=== PATIENT | female | born 1950 | race Hispanic/Latino ===

== ENCOUNTER 2019-02-19 10:47 | Inpatient (IN) | payer OTHER ==
[2019-02-19 11:23] LABS: Absolute Lymphocytes (CBC) 1.3 K/uL (0.7-4.9); Basophils % 0.7 % (0-1.3); Eosinophils % 1.6 % (0-4.4); Hematocrit 44.6 % (36.0-45.0); Lymphocytes % 12.6 % (15.3-44.8); MPV 8.6 fL (7.6-11.3); Monocytes % 5.8 % (3.3-12.3); RBC Red Blood Cell Count 4.79 M/uL (3.86-4.86)
[2019-02-19] MEDS ORDERED: SOTALOL HCL 80 MG TAB ONE (11:32)
[2019-02-19] MEDS ORDERED: NA CHLORIDE 0.9% 500 ML ONE (11:32)
[2019-02-19 11:47] LABS: BUN Blood Urea Nitrogen 10 mg/dL (7-18); Bicarbonate 27 mmol/L (21-32); Glucose Level 113 mg/dL (74-106); NT PRO-BNP 901 pg/mL (<125); Potassium 3.6 mmol/L (3.5-5.1); Sodium Level 143 mmol/L (136-145); Troponin (Emerg Dept Use Only) < 0.02 ng/mL (0.0-0.045)
--- NOTE | 2019-02-19 12:33 | RAD REPORT ---
EXAM DESCRIPTION: CT - Chest For Pe Angio - 02/19/2019 12:10 pm CLINICAL HISTORY: Chest pain COMPARISON: None. TECHNIQUE: Dynamically enhanced axial 3 mm thick images of the chest were obtained during administra tion of <100> mL Isovue 370 IV contrast. Coronal and oblique reconstruction images were generated and reviewed. Exam utilizes a protocol for optimal evaluation of pulmonary arterial tree. Maximum intensity projections 3D imaging was utilized All CT scans are performed using dose optimization technique as appropriate and may include automated exposure control or mA/KV adjustment according to patient size. FINDINGS: A pulmonary embolus is not seen. Central pulmonary arteries are enlarged A thoracic aortic aneurysm is not noted. A pleural effusion is not seen. A pericardial effusion is not seen. Mild right atelectasis. Mild bilateral ground-glass opacities within the lungs Portion of the liver has been resected 19 millimeter nodule left lobe thyroid IMPRESSION: Negative for a pulmonary embolism. Enlargement of the central pulmonary arteries may indicate pulmonary arterial hypertension Mild ground-glass opacities within the lungs indicative of an alveolitis 19 millimeter nodule left lobe of thyroid gland. Nonemergent ultrasound recommended
--- NOTE | 2019-02-19 12:34 | RAD REPORT ---
EXAM DESCRIPTION: Subha Single View02/19/2019 11:27 am CLINICAL HISTORY: Chest pain COMPARISON: 2012 FINDINGS: Mild bilateral pulmonary opacities may indicate pulmonary edema The heart is mildly enlarged. Central pulmonary arteries are enlarged which may indicate pulmonary ar terial hypertension
--- NOTE | 2019-02-19 13:14 | ER ---
Nurse's Notes [facility] Name: Mecca Banuelos Age: 68 yrs Sex: Female : 1950 Arrival Date: 02/19/2019 Time: 10:49 Bed 8 Private MD: Diagnosis: Unspecified atrial fibrillation and atrial flutter;Hypotension, unspecified;Chest pain, unspecified Presentation: 02/19 11:00 Acuity: MARICHUY 2 iw 11:00 Presenting complaint: Patient states: left sided chest pain described as pressure and iw SOB, started when she woke up this morning, hx of afib, recent surgery for heart murmur at [facility] at end of January, stopped taking her sotalol on January 30 prior to surgery. Transition of care: patient was not received from another setting of care. Onset of symptoms was February 19, 2019. Risk Assessment: Do you want to hurt yourself or someone else? Patient reports no desire to harm self or others. Initial Sepsis Screen: Does the patient meet any 2 criteria? HR > 90 bpm. Does the patient have a suspected source of infection? No. Patient's initial sepsis screen is negative. Care prior to arrival: None. 11:00 Method Of Arrival: Wheelchair iw Historical: - Allergies: 11:23 No Known Allergies; iw - Home Meds: 11:23 Tylenol #3 Oral every 4 hours [Active]; gabapentin 100 mg oral cap 3 times per day iw [Active]; clopidogrel 75 mg oral tab 1 tab once daily [Active]; tramadol 50 mg Oral tab 1 tab every 6 hours [Active]; atorvastatin 40 mg oral tab 1 tab once daily [Active]; Docusate Sodium Oral [Active]; aspirin 81 mg Oral TbEC 1 tab once daily [Active]; ondansetron HCl 4 mg Oral tab [Active]; 11:33 lisinopril-hydrochlorothiazide 20-12.5 mg oral tab 1 tab once daily [Active]; iw 11:34 sotalol 80 mg Oral tab [Active]; iw - PMHx: 11:23 Atrial Fib; iw - PSHx: 11:20 Appendectomy; iw 11:33 surgery to repair heart murmur; iw - Immunization history:: Adult Immunizations up to date. - Family history:: not pertinent. - Ebola Screening: : Patient negative for fever greater than or equal to 101.5 degrees Fahrenheit, and additional compatible Ebola Virus Disease symptoms Patient denies exposure to infectious person Patient denies travel to an Ebola-affected area in the 21 days before illness onset No symptoms or risks identified at this time. - Social history:: Smoking status: Patient/guardian denies using tobacco. - Hospitalizations: : Patient was recently seen at. Screenin:26 Abuse screen: Denies threats or abuse. Denies injuries from another. Nutritional iw screening: No deficits noted. Tuberculosis screening: No symptoms or risk factors identified. Fall Risk IV access (20 points). Assessment: 11:15 Reassessment: Pt reports she [facility] S[facility] on January 30, [facility] and I am supposed to have another surgery to get some tumors removed". Pt's daughter states "she thought the Sotalol was the blood thinner so she stopped it instead of the Plavix". was notified. . 11:20 General: Appears in no apparent distress. comfortable, Behavior is calm, cooperative, ss Denies fever, feeling ill, fatigue, chills. Pain: Complains of pain in chest Pain does not radiate. Pain currently is 0 out of 10 on a pain scale. Pain began Pt reports she woke up this morning with mild chest discomfort and felt short of breath. Recently stopped taking Sotolol by accident, but had been meaning to stop taking Plavix to prepare for upcoming surgery. Neuro: Level of Consciousness is awake, alert, obeys commands, Oriented to person, place, time, situation, Speech is normal, Facial symmetry appears normal, Pupils are PERRLA, Denies weakness blurred vision dizziness, headache. Cardiovascular: Pulses are palpable in right radial artery, right posterior tibial artery, left radial artery and left posterior tibial artery. Respiratory: Reports SOB on exertion Airway is patent Respiratory effort is even, unlabored, Respiratory pattern is regular, symmetrical. Respiratory: Denies cough. GI: Patient currently denies diarrhea, nausea, vomiting. EENT: Nares are clear Oral mucosa is moist. Throat is clear. Derm: Skin is intact, is healthy with good turgor, Skin is dry, Skin is pink, warm \\T\\ dry. normal. 11:27 Reassessment: Patient and/or family updated on plan of care and expected duration. Pain ss level reassessed. Patient is alert, oriented x 3, equal unlabored respirations, skin warm/dry/pink. Denies pain. Call light within reach. Family at bedside. Warm blanket given for comfort. 12:03 Reassessment: Assisted patient to bedside commode to have BP. Pt denies pain. is now ss back in bed. Pt to CT at this time VIA stretcher. 13:11 Reassessment: Patient appears in no apparent distress at this time. Patient and/or ss family updated on plan of care and expected duration. Pain level reassessed. Patient denies pain at this time. 14:25 Reassessment: Patients cardiac rhythm changed to Sinus Rhythm. Repeat EKG completed and ss given to Dr. Moe. Pain: Denies pain. Respiratory: Breath sounds are clear bilaterally. Denies cough, shortness of breath pain with respiration, pain with cough, pain with movement. 14:32 Reassessment: Assisted patient to bedside commode. Void x1. Pt denies dizziness, pain ss and/or shortness of breath. 14:38 Reassessment: Attempted to call report. Nurse unavailable at this time. Will call back ss in 5 minutes. Vital Signs: 11:15 BP 93 / 47; Pulse 133; Resp 20 S; Pulse Ox 98% on R/A; iw 11:25 Temp 98.2(TE); ss 11:35 BP 88 / 56; Pulse 135; Pulse Ox 98% on R/A; Pain 0/10; ss 11:45 BP 96 / 75; Pulse 129; Resp 19; Pulse Ox 98% on R/A; Pain 0/10; ss 12:19 BP 78 / 54; Pulse 115; ss 12:27 BP 92 / 51; Pulse 97; Resp 21; Pulse Ox 95% on R/A; Pain 0/10; ss 13:08 BP 104 / 82; Pulse 105; ss 13:53 BP 97 / 64; Pulse 98; Pain 0/10; ss 14:12 BP 110 / 64; Pulse 68; Resp 15; Pulse Ox 98% on R/A; Pain 0/10; ss 14:20 BP 106 / 56; Pulse 71; Resp 16; Pulse Ox 98% on R/A; Pain 0/10; ss Vitals: 14:18 Cardiac Rhythm Assessment Regular Sinus rhythm. ED Course: 10:49 Patient arrived in ED. as 10:53 Saúl Moe MD is Attending Physician. rn 11:10 Initial lab(s) drawn, by me, sent to lab. Inserted saline lock: 20 gauge in right iw antecubital area, using aseptic technique. Blood collected. 11:13 Triage completed. iw 11:14 Radiology exam delayed due to lab results not completed at this time. (BUN/Creatinine). bq 11:19 Arm band placed on. iw 11:20 Lotus Mariano, EDSON is Primary Nurse. ss 11:27 Patient maintains SpO2 saturation greater than 95% on room air. ss 11:28 XRAY Chest (1 view) In Process Unspecified. EDMS 11:36 Radiology exam delayed due to lab results not completed at this time. (BUN/Creatinine). mw3 12:10 CT completed. Patient tolerated procedure well. Patient moved back from CT. mw3 12:10 CT Chest For PE Angio In Process Unspecified. EDMS 13:13 Wesly Vang MD is Hospitalizing Provider. rn 13:15 Patient has correct armband on for positive identification. Bed in low position. Call ss light in reach. Side rails up X 1. monitor car operator on. Pulse ox on. NIBP on. 14:56 No provider procedures requiring assistance completed. Patient admitted, IV remains in ss place. Administered Medications: 11:18 Drug: Sotalol 80 mg Route: PO; aa5 12:00 Follow up: Response: No adverse reaction sv 14:19 Follow up: Response: No adverse reaction; Cardiac rhythm changed ss 11:18 Drug: NS 0.9% 500 ml Route: IV; Rate: bolus; Site: right antecubital; aa5 12:00 Follow up: IV Status: Completed infusion; IV Intake: 500ml ss 14:19 Not Given (Physician Discretion): Sotalol 80 mg PO once ss Intake: 12:00 IV: 500ml; Total: 500ml. ss Outcome: 13:13 Decision to Hospitalize by Provider. rn 14:56 Admitted to Tele accompanied by tech, family with patient, via wheelchair, room 411, ss with chart, Report called to EDSON Holden 14:56 Condition: good 14:56 Instructed on the need for admit, Demonstrated understanding of instructions. 14:57 Patient left the ED. ss Signatures: Dispatcher [employer] Jamila Roque RN RN Tish Torres Amelia as Williams, Irene, RN RN Saúl Allen MD MD rn Calderon, Christiane, EDSON RN aa5 Lotus Mariano RN RN ss Dimas, Renata 3
--- NOTE | 2019-02-19 13:15 | EDPHYS ---
Physician Documentation [facility] Name: Mecca Banuelos Age: 68 yrs Sex: Female : 1950 Arrival Date: 02/19/2019 Time: 10:49 Bed 8 Private MD: ED Physician Saúl Moe HPI: 02/19 11:05 This 68 yrs old Female presents to ER via Unassigned with complaints of rn Irregular Pulse, Shortness Of Breath. 11:05 The patient has shortness of breath at rest. Onset: The symptoms/episode began/occurred rn this morning. Duration: The symptoms are intermittent. The patient's shortness of breath is aggravated by exertion, talking. Severity of symptoms: At their worst the symptoms were mild in the emergency department the symptoms are unchanged. The patient has experienced similar episodes in the past. Reports palpitations, generalized weakness, sob, that began this morning, reports had intravascular procedure a few weeks ago at [facility] to get rid of murmur, had been doing fine. No fever/cough/vomiting/diarrhea/abd pain. Denies current pain. Reports felt chest "discomfort", no hemoptysis. Has known "irregular heart beat", takes sotalol, and aspirin. . Historical: - Allergies: 11:23 No Known Allergies; iw - Home Meds: 11:23 Tylenol #3 Oral every 4 hours [Active]; gabapentin 100 mg oral cap 3 times per day iw [Active]; clopidogrel 75 mg oral tab 1 tab once daily [Active]; tramadol 50 mg Oral tab 1 tab every 6 hours [Active]; atorvastatin 40 mg oral tab 1 tab once daily [Active]; Docusate Sodium Oral [Active]; aspirin 81 mg Oral TbEC 1 tab once daily [Active]; ondansetron HCl 4 mg Oral tab [Active]; 11:33 lisinopril-hydrochlorothiazide 20-12.5 mg oral tab 1 tab once daily [Active]; iw 11:34 sotalol 80 mg Oral tab [Active]; iw - PMHx: 11:23 Atrial Fib; iw - PSHx: 11:20 Appendectomy; iw 11:33 surgery to repair heart murmur; iw - Immunization history:: Adult Immunizations up to date. - Family history:: not pertinent. - Ebola Screening: : Patient negative for fever greater than or equal to 101.5 degrees Fahrenheit, and additional compatible Ebola Virus Disease symptoms Patient denies exposure to infectious person Patient denies travel to an Ebola-affected area in the 21 days before illness onset No symptoms or risks identified at this time. - Social history:: Smoking status: Patient/guardian denies using tobacco. - Hospitalizations: : Patient was recently seen at. ROS: 11:05 Constitutional: Negative for fever, chills, and weight loss, Eyes: Negative for injury, rn pain, redness, and discharge, Neck: Negative for injury, pain, and swelling, Cardiovascular: + palpitations and chest discomfort. Respiratory: + sob, negative for cough Abdomen/GI: Negative for abdominal pain, nausea, vomiting, diarrhea, and constipation, MS/Extremity: Negative for injury and deformity, Skin: Negative for injury, rash, and discoloration, Neuro: Negative for headache, numbness, tingling, and seizure. Exam: 11:05 Constitutional: This is a well developed, well nourished patient who is awake, alert, rn and in no acute distress. Head/Face: Normocephalic, atraumatic. Eyes: Pupils equal round and reactive to light, extra-ocular motions intact. Lids and lashes normal. Conjunctiva and sclera are non-icteric and not injected. Cornea within normal limits. Periorbital areas with no swelling, redness, or edema. ENT: MMM Cardiovascular: Regular rhythm, tachycardic, no murmur Respiratory: Lungs have equal breath sounds bilaterally, clear to auscultation Abdomen/GI: soft, non-tender Skin: Warm, dry MS/ Extremity: Pulses equal, no cyanosis. Neurovascular intact. Full, normal range of motion. Equal circumference. Neuro: Awake and alert, GCS 15, oriented to person, place, time, and situation. Cranial nerves II-XII grossly intact. Motor strength 5/5 in all extremities. Sensory grossly intact. Vital Signs: 11:15 BP 93 / 47; Pulse 133; Resp 20 S; Pulse Ox 98% on R/A; iw 11:25 Temp 98.2(TE); ss 11:35 BP 88 / 56; Pulse 135; Pulse Ox 98% on R/A; Pain 0/10; ss 11:45 BP 96 / 75; Pulse 129; Resp 19; Pulse Ox 98% on R/A; Pain 0/10; ss 12:19 BP 78 / 54; Pulse 115; ss 12:27 BP 92 / 51; Pulse 97; Resp 21; Pulse Ox 95% on R/A; Pain 0/10; ss 13:08 BP 104 / 82; Pulse 105; ss 13:53 BP 97 / 64; Pulse 98; Pain 0/10; ss 14:12 BP 110 / 64; Pulse 68; Resp 15; Pulse Ox 98% on R/A; Pain 0/10; ss 14:20 BP 106 / 56; Pulse 71; Resp 16; Pulse Ox 98% on R/A; Pain 0/10; ss MDM: 10:53 Patient medically screened. rn 13:09 Data reviewed: vital signs, nurses notes, lab test result(s), EKG, radiologic studies, rn CT scan, plain films, and as a result, I will admit patient. Counseling: I had a detailed discussion with the patient and/or guardian regarding: the historical points, exam findings, and any diagnostic results supporting the discharge/admit diagnosis, lab results, radiology results, the need for further work-up and treatment in the hospital. Response to treatment: the patient's symptoms have mildly improved after treatment. Admission orders: after a detailed discussion of the patient's condition and case, the admit orders are written by me. ED course: Pt with improvement of HR, still tachycardic but resolved chest pain and sob. CT PE negative, possible alveolitis vs pulmonary edema. Has been off of sotalol for weeks accidentally or due to miscommunication, no PCP in area, and still hypotensive, admitted to Dr. Vang for further care and HR control.. 02/19 11:04 Order name: Basic Metabolic Panel; Complete Time: 11:49 rn 02/19 11:04 Order name: CBC with Diff; Complete Time: 11:49 rn 02/19 11:04 Order name: NT PRO-BNP; Complete Time: 11:49 rn 02/19 11:04 Order name: Troponin (emerg Dept Use Only); Complete Time: 11:49 rn 02/19 11:04 Order name: XRAY Chest (1 view); Complete Time: 12:36 rn 02/19 11:05 Order name: CT Chest For PE Angio; Complete Time: 12:36 rn 02/19 11:04 Order name: EKG; Complete Time: 11:05 rn 02/19 11:04 Order name: Cardiac monitoring; Complete Time: 11: rn 02/19 11:04 Order name: EKG - Nurse/Tech; Complete Time: 11: rn 02/19 11:04 Order name: IV Saline Lock; Complete Time: 11:23 rn 02/19 14:19 Order name: EKG; Complete Time: 14:19 ss 02/19 11:04 Order name: Labs collected and sent; Complete Time: : rn 02/19 11:04 Order name: O2 Per Protocol; Complete Time: : rn 02/19 11:04 Order name: O2 Sat Monitoring; Complete Time: : rn 02/19 14:19 Order name: EKG - Nurse/Tech; Complete Time: 14:19 ss Administered Medications: 11:18 Drug: Sotalol 80 mg Route: PO; aa5 12:00 Follow up: Response: No adverse reaction sv 14:19 Follow up: Response: No adverse reaction; Cardiac rhythm changed ss 11:18 Drug: NS 0.9% 500 ml Route: IV; Rate: bolus; Site: right antecubital; aa5 12:00 Follow up: IV Status: Completed infusion; IV Intake: 500ml ss 14:19 Not Given (Physician Discretion): Sotalol 80 mg PO once ss Disposition: 02/19/19 13:13 Hospitalization ordered by Wesly Vang for Inpatient Admission. Preliminary diagnosis are Unspecified atrial fibrillation and atrial flutter, Hypotension, unspecified, Chest pain, unspecified. - Bed requested for Telemetry/MedSurg (Inpatient). - Status is Inpatient Admission. ss - Condition is Stable. - Problem is new. - Symptoms have improved. UTI on Admission? No Signatures: Dispatcher [employer] EDAleta Phillips RN EDSON Saúl Moe MD MD rn Calderon, Audri RN RN [email or web address] Lotus Mariano RN RN Rod Dupree RN RN ja1 Jamila Wan RN sv Corrections: (The following items were deleted from the chart) 14:38 13:13 Hospitalization Ordered by Wesly Vang MD for Inpatient Admission. Preliminary ja1 diagnosis is Unspecified atrial fibrillation and atrial flutter; Hypotension, unspecified; Chest pain, unspecified. Bed requested for Telemetry/MedSurg (Inpatient). Status is Inpatient Admission. Condition is Stable. Problem is new. Symptoms have improved. UTI on Admission? No. rn 14:57 14:38 02/19/2019 13:13 Hospitalization Ordered by Wesly Vang MD for Inpatient ss Admission. Preliminary diagnosis is Unspecified atrial fibrillation and atrial flutter; Hypotension, unspecified; Chest pain, unspecified. Bed requested for Telemetry/MedSurg (Inpatient). Status is Inpatient Admission. Condition is Stable. Problem is new. Symptoms have improved. UTI on Admission? No. ja1
[2019-02-19] MEDS ORDERED: ACETAMINOPHEN 500 MG TAB PO PRN (15:07)
[2019-02-19] MEDS ORDERED: ONDANSETRON 4 MG/2 ML VIAL IV PRN (15:07)
[2019-02-19 15:43] VITALS: BMI 33.0
[2019-02-19 16:24] LABS: Magnesium 2.4 mg/dL (1.8-2.4); Thyroid Stimulating Hormone 0.895 uIU/mL (0.360-3.740)
[2019-02-19] MEDS: TRAMADOL HCL 50 MG TAB PO SCH ×2 (16:43→23:15)
[2019-02-19] MEDS: NA CHLORIDE 0.9% 1,000 ML IV SCH ×2 (16:44→23:16)
--- NOTE | 2019-02-19 20:08 | RAD REPORT ---
EXAM DESCRIPTION: US - Thyroid Para Parotid Gland - 02/19/2019 7:53 pm CLINICAL HISTORY: ICD R 22.1 thyroid nodule COMPARISON: None FINDINGS: The right lobe of the thyroid measures 4.8 x 2 x 1.6 centimeters. Echotexture is mildly in homogeneous The left lobe of the thyroid measures 4.6 x 1.8 x 2.4 centimeters. 2.7 centimeter mostly cystic nodul e is present containing septations IMPRESSION: 2.7 centimeter cystic nodule containing septations within left lobe of thyroid gland lik lizy is benign. Follow up ultrasound in 1 year recommended for re-evaluation
--- NOTE | 2019-02-19 20:09 | EKG ---
Test Date: 2019-02-19 Test Time: 14:21:23 Plastic Mould Maker: QAMAR MEASUREMENT RESULTS: Intervals: Rate: 72 NM: 150 QRSD: 90 QT: 428 QTc: 468 [place]: P: 50 NM: 150 QRS: -59 T: -12 INTERPRETIVE STATEMENTS: Normal sinus rhythm Left axis deviation Nonspecific T wave abnormality Abnormal ECG Compared to ECG 02/19/2019 10:57:13 Left-axis deviation now present Atrial flutter no longer present Possible ischemia no longer present T-wave abnormality still present Electronically Signed On 02-19-19 20:08:21 CDT by Kalyan Lucas
--- NOTE | 2019-02-19 20:10 | EKG ---
Test Date: 2019-02-19 Test Time: 10:57:13 Mail Messenger: TYLER MEASUREMENT RESULTS: Intervals: Rate: 136 [place]: QRSD: 130 QT: 376 QTc: 565 [place]: P: 145 [place]: QRS: 6 T: 269 INTERPRETIVE STATEMENTS: Atrial flutter with 2:1 AV conduction Nonspecific intraventricular block T wave abnormality, consider inferior ischemia Abnormal ECG Compared to ECG 08/24/2013 21:54:07 T-wave abnormality now present Possible ischemia now present Sinus rhythm no longer present Left-axis deviation no longer present Myocardial infarct finding no longer present Electronically Signed On 02-19-19 20:08:41 CDT by Kalyan Lucas
[2019-02-19] MEDS: ATORVASTATIN 40 MG TAB PO SCH (20:54)
[2019-02-19] MEDS: GABAPENTIN 100 MG CAP PO SCH (20:54)
[2019-02-19] MEDS: SOTALOL HCL 80 MG TAB PO SCH (20:54)
--- NOTE | 2019-02-20 01:10 | HP ---
Date of Admission: 02/19/2019 Primary Care Physician: Out of town. Code Status: Full. Chief Complaint: Generalized weakness and dizziness. History Of Present Illness: The patient is a 68-year-old female with past medical history of hyperte nsion, atrial fibrillation on sotalol and Plavix and history of apparent carcinoid tumors with recent resection at [facility], who was supposed to hold her Plavix; however, ended up holding her so talol instead since the surgery on 01/30/2019. The patient comes in with dizziness, weakness, and wa s brought into the ER for further evaluation. Her symptoms are constant, moderate, progressively wor sening. Upon arrival, she was found to be in the 140s with atrial fibrillation with RVR. Her blood pressure was as low as 70s over 50s, now improved to the 90s over 60s. The patient did receive a dos e of sotalol, which brought down her heart rate to the 110. The patient did not have any elevation o f her troponin. The patient was then referred for admission. When seen in the ER, she was awake, al ert, oriented x3, in some mild distress. 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 Allergies: NO KNOWN DRUG ALLERGIES. Medications: List reviewed. Social History: The patient denies any tobacco use, alcohol use, or illicit drug use. The patient r es[facility] in [facility], currently in [place] for treatment at [facility]. Family History: Both her brothers have diabetes, sister has heart disease and grandfather also suffe red from [place]. Review of Systems: A 10-point systems reviewed, negative except as per HPI. Physical Examination: Vital Signs: Blood pressure 93/47, pulse 133, respirations 20, O2 98% on room air. General: Awake, alert, oriented x3. Some mild distress. Elderly female. CV: S1, S2. Irregularly irregular. Peripheral pulses present. Respiratory: Moving air well bilaterally. No wheezing or stridor. No use of accessory muscles. Gastrointestinal: Abdomen is soft, nontender, nondistended. Positive bowel sounds. No guarding or rigidity. Extremities: No clubbing, cyanosis or edema. Neuro: Cranial nerves 2-12 intact. Grossly no focal neurological deficit. Speech is normal. Skin: No rashes. Normal skin turgor. Psych: Mood is okay. Affect is full. Insight and judgment are good. Laboratory Data: Sodium 143, potassium 3.6, chloride 110, CO2 27, BUN 10, creatinine 0.73, glucose 1 13, calcium 8.5, troponin less than 0.02, BNP 901. WBC 10.6, H and H 14.5 and 44.6, platelets 257, n eutrophils 79%. CT angio of the chest shows negative for PE, enlargement of the central pulmonary ar teries may indicate pulmonary arterial hypertension, mild ground glass opacities within the lungs ind icative of an alveolitis, 19 mm nodule in the left lobe of the thyroid gland. Nonemergent ultrasound recommended. Chest x-ray personally reviewed shows mild bilateral pulmonary opacities may indicate pulmonary edema, heart mildly enlarged, central pulmonary arteries are enlarged, may indicate pulmona ry arterial hypertension. Assessment And Plan: A 68-year-old female with: 1.Atrial fibrillation with rapid ventricular response, improved with dose of sotalol, hemodynamicall y unstable with blood pressure in the 70s over 50s. The patient complaining of some generalized weak ness, dizziness. No chest pain. Troponin is negative. We will check magnesium level and TSH level. 2.Acute hypotension indicating hemodynamically instability due to atrial fibrillation. The patient did not require cardioversion. She was able to have improved rate with sotalol. Blood pressure impr brett to 90s over 50s. We will continue to monitor closely. Continue with IV fluids. The patient is still symptomatic with dizziness and weakness. 3.Incidental finding of 19 mm nodule in the left lobe of the thyroid. We will order thyroid ultraso und. 4.History of precancerous tumors with recent surgery on 01/30/[address] [facility], apparently s eems to be carcinoid type of tumor. The patient is scheduled for surgery again in March, has been t old to hold her blood thinners. 5.Deep vein thrombosis prophylaxis addressed with SCDs. Plan: Admit patient to Med-Surg, place as inpatient. Length of stay greater than 2 midnights. /MELANIE Voice ID: [id number]
[2019-02-20] MEDS: TRAMADOL HCL 50 MG TAB PO SCH ×4 (05:28→23:47)
[2019-02-20 05:41] LABS: Absolute Lymphocytes (CBC) 1.7 K/uL (0.7-4.9); Eosinophils % 3.4 % (0-4.4); Hematocrit 37.3 % (36.0-45.0); Lymphocytes % 30.6 % (15.3-44.8); MPV 8.6 fL (7.6-11.3); Monocytes % 8.9 % (3.3-12.3); RBC Red Blood Cell Count 3.98 M/uL (3.86-4.86)
[2019-02-20 05:55] LABS: Albumin 2.9 g/dL (3.4-5.0); Bilirubin Total 0.8 mg/dL (0.2-1.0); Phosphorus 3.5 mg/dL (2.5-4.9); Potassium 4.7 mmol/L (3.5-5.1); Protein, Total 5.6 g/dL (6.4-8.2)
[2019-02-20] MEDS: SOTALOL HCL 80 MG TAB PO SCH ×2 (08:42→21:17)
[2019-02-20] MEDS: ASPIRIN EC 81 MG TAB PO SCH (08:43)
[2019-02-20] MEDS: GABAPENTIN 100 MG CAP PO SCH ×3 (08:43→21:16)
[2019-02-20] MEDS: DOCUSATE NA 100 MG CAP PO SCH (08:43)
[2019-02-20] MEDS: NA CHLORIDE 0.9% 1,000 ML IV SCH ×2 (11:08→21:17)
[2019-02-20] MEDS: CLOPIDOGREL 75 MG TABLET PO SCH (11:08)
--- NOTE | 2019-02-20 12:56 | CON ---
Identification: A 68-year-old woman. Chief Complaint: Heart racing. History Of Present Illness: Ms. Banuelos has paroxysmal atrial fibrillation for several years, probab ly close to 15. She is on sotalol for it. She is not on anticoagulant because a few weeks ago she h ad some kind of intracardiac procedure to "treat a murmur." She was seen at [facility] for a malign maggi and before the malignancy has been treated. She had a paroxysm of atrial fibrillation and then required some kind of procedure. I am not sure if it was an atrial septal defect closure or transcut aneous AVR. The patient and family are unable to provide any history, either written or what they re member. At this point, she had a treatment for her murmur. Medications: Outpatient medications: Zofran, lisinopril, hydrochlorothiazide, aspirin, docusate, at orvastatin, tramadol, clopidogrel, gabapentin, codeine, and sotalol 80 b.i.d. She was in atrial fibrillation for just a few hours, reverted to sinus rhythm without a shock or any other intervention. Physical Examination: VITAL SIGNS: 5 feet 2 inches, 181 pounds. HEENT: Normal. LUNGS: Clear. CARDIAC: Normal. ABDOMEN: Soft. EXTREMITIES: Normal. Imaging Studies: Her electrocardiogram shows sinus rhythm this morning. Assessment: I believe, Ms. Banuelos could be discharged with just 1 paroxysm of atrial fibrillation. I am not sure what to do with her anticoagulants. I think doctors at [facility] did the last procedure, decided they did not want her on it, they wanted her on aspirin and Plavix. It is very li miki she had an intracoronary stent a few weeks ago, in which case 1 approach would be to give her Pl avix and Xarelto or Eliquis and avoid the aspirin until I know what the procedure was, I do not reall y know what to recommend. So, continue what she has been on. I am going to get in contact with her physicians of [facility] is probably the most prudent thing to do. GABBIE/MELANIE Voice ID: [id number] Report ID: [id number]
[2019-02-20] MEDS ORDERED: PROMETHAZINE 25 MG/ML VIAL IV PRN (14:16)
--- NOTE | 2019-02-20 17:17 | RAD REPORT ---
EXAM DESCRIPTION: CT - Abdomen Pelvis Wo Contrast - 02/20/2019 4:41 pm CLINICAL HISTORY: Abdominal pain, epigastric pain, vomiting, prior cholecystectomy, prior history of abdominal tumor removal not otherwise specified COMPARISON: CT imaging August 2013 TECHNIQUE: Axial [address] imaging of the abdomen and pelvis was performed without IV contrast. No IV contrast was given because of allergy, abnormal renal function, patient refusal or physician re quest. Oral contrast was given. All CT scans are performed using dose optimization technique as appropriate and may include automated exposure control or mA/KV adjustment according to patient size. FINDINGS: Minimal right pleural effusion is present. No acute lung base finding noted. No pericardia l thickening or effusion. Since the prior examination patient has undergone partial resection of the right lobe liver. Numerous surgical clips are present. No focal lesion of the liver parenchyma seen on noncontrast imaging. Gal lbladder is absent. No biliary tree dilatation identified. The spleen and pancreas show no suspicious findings. No hydronephrosis or suspicious renal mass. No significant adrenal finding. Isodense renal masses an d pyelonephritis cannot be excluded in the absence of IV contrast. The urinary bladder is without sig nificant finding. No ovarian mass identified. Uterus is lobulated in contour not substantially differ ent from comparison. Small fibroid or fibroids may be present. A significant uterine process is not s uspected. . No gastric dilatation or gastric wall thickening. The large and small bowel loops are not dilated and show no acute component. Patient has mild left-sided diverticulosis. No free air, free fluid or infl ammatory stranding. No hernia, mass or bulky lymphadenopathy. No omental thickening. Bony degenerative changes are present. No clearly pathologic bone process identifiable. IMPRESSION: Patient is status post partial resection of the liver with the remaining liver tissue fr ee of definable mass on noncontrast imaging. No ascites, omental thickening, lymphadenopathy other evidence for carcinomatosis. No bowel obstruction or other acute GI process seen. Full assessment is limited is the absence of IV contrast.
--- NOTE | 2019-02-20 20:02 | PN ---
Date of Progress Note: 02/20/2019 Subjective: Patient seen and examined, chart reviewed, and case discussed with RN. Patient complaini ng of nausea, has had multiple episodes of vomiting. Zofran was ineffective. Unable to tolerate her diet. Medications: List reviewed. Physical Examination: Vital Signs: Temperature 97.4, heart rate 58, blood pressure 147/67, respirations 14, O2 of 95% on r oom air. General: Awake, alert, oriented x3. Elderly female, ill-appearing, obese. CV: S1, S2. Normal sinus rhythm. Peripheral pulses present. Respiratory: Moving air well bilaterally. No wheezing or stridor. No use of accessory muscles. Gastrointestinal: Abdomen is soft. Tenderness to palpation in the epigastric region. No rebound or guarding. No distention. Positive bowel sounds. Extremities: No clubbing, cyanosis, or edema. Neurologic: Nonfocal. Laboratory Data: Sodium 146, potassium 4.7, chloride 113, CO2 of 29, BUN 10, creatinine 0.66, glucos e 84, calcium 7.9, phosphorus 3.5. TSH is 0.895. WBC 5.6, H and H 12.2 and 37.3, platelets 225, brenda trophils 56%. Thyroid ultrasound shows a 2.7 cm cystic nodule containing septations within the left lobe of the thyroid gland likely to be benign. Follow up ultrasound in 1 year recommended for re-ken luation. Assessment: A 68-year-old female with: 1.Atrial fibrillation, chronic with rapid ventricular response, improved with sotalol. Patient was initially hemodynamically unstable with blood pressure 70/50, however, did not require any cardiovers ion or shock. Now back in sinus rhythm. Appreciate Dr. Lucas' input. TSH levels in normal limits. 2.Acute hypotension with hemodynamic instability due to atrial fibrillation improved. We will renée nue to monitor. 3.A 2.7 cm left thyroid lobe cystic nodule, likely benign. Repeat ultrasound in 1 year. 4.History of precancerous tumors with recent surgery at [facility]. 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 5.Status post recent closure of either atrial septal defect or atrioventricular defect at [facility]. Plan: 1.Continue with DVT prophylaxis. Resume Plavix. We will obtain records from [facility]. 2.Acute epigastric abdominal pain with nausea and vomiting. We will switch Zofran to Phenergan. Ob tain CT abdomen and pelvis. Patient does have multiple tumors that are apparently recently resected. We will rule out any sort of mass effect. /MELANIE Voice ID: [id number] Report ID: [id number]
[2019-02-20] MEDS: ATORVASTATIN 40 MG TAB PO SCH (21:17)
[2019-02-21] MEDS: TRAMADOL HCL 50 MG TAB PO SCH ×2 (05:55→12:20)
[2019-02-21 06:19] LABS: Absolute Lymphocytes (CBC) 1.6 K/uL (0.7-4.9); Basophils % 0.9 % (0-1.3); Eosinophils % 3.6 % (0-4.4); Hematocrit 39.1 % (36.0-45.0); Lymphocytes % 29.1 % (15.3-44.8); MPV 8.6 fL (7.6-11.3); Monocytes % 7.8 % (3.3-12.3); RBC Red Blood Cell Count 4.16 M/uL (3.86-4.86)
[2019-02-21 06:20] LABS: ALT/SGPT 19 U/L (12-78); AST/SGOT 18 U/L (15-37); Alkaline Phosphatase 43 U/L (45-117); BUN Blood Urea Nitrogen 7 mg/dL (7-18); Bicarbonate 31 mmol/L (21-32); Bilirubin Total 0.8 mg/dL (0.2-1.0); Glucose Level 76 mg/dL (74-106); Potassium 4.6 mmol/L (3.5-5.1); Protein, Total 5.7 g/dL (6.4-8.2); Sodium Level 145 mmol/L (136-145)
[2019-02-21] MEDS: NA CHLORIDE 0.9% 1,000 ML IV SCH (07:23)
[2019-02-21] MEDS: DOCUSATE NA 100 MG CAP PO SCH (08:25)
[2019-02-21] MEDS: GABAPENTIN 100 MG CAP PO SCH ×2 (08:25→12:20)
[2019-02-21] MEDS: CLOPIDOGREL 75 MG TABLET PO SCH (08:25)
[2019-02-21] MEDS: SOTALOL HCL 80 MG TAB PO SCH (08:25)
[2019-02-21] MEDS: ASPIRIN EC 81 MG TAB PO SCH (08:25)
[2019-02-21 12:44] VITALS: O2SAT 97
[2019-02-21 16:32] VITALS: BP 160/67; TEMP 97.6
--- NOTE | 2019-02-22 17:25 | P.DS ---
Admission Date: 02/19/19 Discharge Date: 02/21/19 Disposition: ROUTINE DISCHARGE Discharge Condition: GOOD Reason for Admission: Atrial fibrillation Consultations: Cardiology Brief History of Present Illness: The patient is a 68-year-old female with past medical history of hypertension, atrial fibrillation on sotalol and Plavix and history of apparent carcinoid tumors with recent resection at [facility], who was supposed to hold her Plavix; however, ended up holding her sotalol instead since the surgery on 01/30. The patient comes in with dizziness, weakness, and was brought into the ER for further evaluation. Her symptoms are constant, moderate, progressively worsening. Upon arrival, she was found to be in the 140s with atrial fibrillation with RVR. Her blood pressure was as low as 70s over 50s, now improved to the 90s over 60s. The patient did receive a dose of sotalol, which brought down her heart rate to the 110. The patient did not have any elevation of her troponin. The patient was then referred for admission. When seen in the ER, she was awake, alert, oriented x3, in some mild distress. Hospital Course: Patient was admitted for each fibrillation rapid ventricular response, that improved with her dosages sotalol. Cardiology was consulted. Initially, she was hemodynamically unstable with blood pressure in the 70s over 50s but patient did not require cardioversion. Her labs remained stable and her heart rate did convert to normal sinus rhythm. She does have a history of pre cancers tumors,?carcinoid type of tumor for which she follows up at them all her min and she has a further surgery planned in March. She has been seen by senior treasury consultant at [facility]. Her symptoms improved, returned back to baseline. Her diagnoses and treatment plan were explained to her, all questions were answered. Her daughter and patient verbalized understanding. She was then discharged home in a safe and stable manner with instructions to follow up with her senior treasury consultant at [facility] for further medication changes. Vital Signs/Physical Exam: Temp Pulse Resp BP Pulse Ox 97.6 F 63 16 160/67 H 96 02/21/19 16:00 02/21/19 16:00 02/21/19 16:00 02/21/19 16:00 02/21/19 16:00 General: Alert, In no apparent distress, Oriented x3 HEENT: Atraumatic, PERRLA, EOMI Neck: Supple, JVD not distended Respiratory: Clear to auscultation bilaterally, Normal air movement Cardiovascular: Regular rate/rhythm, Normal S1 S2 Gastrointestinal: Normal bowel sounds, No tenderness Musculoskeletal: No tenderness Integumentary: No rashes Neurological: Normal speech, Normal tone, Normal affect Lymphatics: No axilla or inguinal lymphadenopathy Laboratory Data at Discharge: WBC 5.4 K/uL (4.3-10.9) 02/21/19 05:40 Hgb 12.6 g/dL (12.0-15.0) 02/21/19 05:40 Hct 39.1 % (36.0-45.0) 02/21/19 05:40 Plt Count 222 K/uL (152-406) 02/21/19 05:40 Sodium 145 mmol/L (136-145) 02/21/19 05:40 Potassium 4.6 mmol/L (3.5-5.1) 02/21/19 05:40 BUN 7 mg/dL (7-18) 02/21/19 05:40 Creatinine 0.58 mg/dL (0.55-1.3) 02/21/19 05:40 Glucose 76 mg/dL (74-106) 02/21/19 05:40 Phosphorus 3.5 mg/dL (2.5-4.9) 02/20/19 05:26 Magnesium 2.4 mg/dL (1.8-2.4) 02/19/19 15:40 Total Bilirubin 0.8 mg/dL (0.2-1.0) 02/21/19 05:40 AST 18 U/L (15-37) 02/21/19 05:40 ALT 19 U/L (12-78) 02/21/19 05:40 Alkaline Phosphatase 43 U/L (45-117) L 02/21/19 05:40 Home Medications: Aspirin [Aspir-Low] 81 mg PO DAILY 02/19/19 Atorvastatin Calcium [Lipitor] 40 mg PO BEDTIME 02/19/19 Clopidogrel Bisulfate [Plavix*] 75 mg PO DAILY 02/19/19 Codeine/APAP [Tylenol #3*] 1 tab PO Q4HP PRN 02/19/19 Docusate Sodium 100 mg PO DAILY 02/19/19 Gabapentin [Neurontin*] 100 mg PO TID 02/19/19 Lisinopril/Hydrochlorothiazide [Lisinopril-Hctz 20-12.5 mg Tab] 1 each PO DAILY 02/19/19 Ondansetron HCl 4 mg PO Q6HP PRN 02/19/19 Sotalol HCl [Betapace*] 80 mg PO BID 02/19/19 Tramadol HCl [Ultram] 50 mg PO Q6H 02/19/19 Patient Discharge Instructions: Please follow up with your cardiologosit at [facility]. Please return to the Emergency room for worsening symptoms. Diet: AHA Activity: Ad sae Time spent managing pt's care (in minutes): 55
== END 2019-02-21 17:54 | disposition home or self-care (01) | DRG 310 ==
LOC: ER 10:47 → ERHOLD 14:12 → 4TH 14:39
PROVIDERS: ADMIT Family Medicine; ATTEND Family Medicine
DX: I48.0 Paroxysmal atrial fibrillation (principal); I95.9 Hypotension, unspecified; E04.1 Nontoxic single thyroid nodule; I10 Essential (primary) hypertension; Z79.02 Long term (current) use of antithrombotics/antiplatelets
CPT/HCPCS: 36415; 71045; 71275; 74176; 76536; 80048; 80053; 83735; 83880; 84100; 84443; 84484; 85025; 93005; 94760; 96360; 99285; J2405; J2550; J7030; Q9967

== ENCOUNTER 2021-07-12 19:36 | Inpatient (IN) | payer OTHER ==
--- OUTSIDE RECORDS SUMMARY | 2021-07-12 19:40 | XMS REPORT | Continuity of Care Document ---
:1950 Author Organization [facility] t Address [address] [place] [address] Care Team Providers Name Role Phone Mook ALAN Primary Care Physician Aly LLANOS Attending Clinician Mook ALAN Attending Clinician FEMI Attending Clinician Unavailable Payers Payer Name Policy Type Policy Effective Date Expiration Date Sour ce Number [facility] [id number] 2018 MD Dickerson rson MEDICARE 00:00:00 [facility] MEDICARE [id number] 2018-[address] [address], [place] [address]Medicare Problems Condition Condition Condition Status Onset Resolution Last Treating Co mments Source Name Details Category Date Date Treatment Clinician Date 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 Last dose Plavix 03/01/19On going ASA 81mg Gastroesop Gastroesop Disease Active Overview : MD rodgers vishal 03-08 Unique Anderso reflux reflux 00:00: g of this n disease disease 00 note might be different from the original. Currently asymptoma tic, takes Zantac or Protonix prn Dyslipidem Dyslipidem Disease Active Overview : ia ia 03-08 Unique Anderso 00:00: g of this n 00 note might be different from the original. Pt was previousl y on Lipitor, however this was discontin ued on 03/01 by outside cardiolog ist due to "low cholester ol levels and upcoming surgery" per pt's daughter Ostium Ostium Disease Active Overview: secundum secundum 11-29 Formatstevan And erso type type 00:00: g of this n atrial atrial 00 note septal septal might be defect defect different from the original. S/p ASD repair on 01/30/19 and was discharge d on 02/03/19 without complicat ionsdisch arged with aspirin 81mg and plavix 75mg daily for 30 daysLast Assessmen t & Plan: Formattin g of this note might be different from the original. -Currentl y, patient is without any significa nt cardiac symptoms. Patient does not have any signs of heart failure.- Patient has evidence of ostium secundum ASD with right-harish ed chamber dilation based on outside records.- We will refer the patient to Dr. Adame for a second opinion for ASD closure. Essential Essential Disease Active Overview: (primary) (primary) 11-29 Formattin A nderso hypertensi hypertensi 00:00: g of this n on on 00 note is different from the original. BP Readings from Last 3 Encounter s: 03/08/19 118/75 12/02/18 126/75 11/29/18 126/70 Last Assessmen t & Plan: Formattin g of this note might be different from the original. -Blood pressure today is 126/70 mmHg-Cont inue taking current hypertens ion medicatio n regimen. Obesity Obesity Disease Recurre MD wang 6-06 Anderso 00:00: n 00 Cholangioc Cholangioc Disease Active 2016- M D arcinoma arcinoma 5-16 Jerson o 00:00: n 00 History of History of Problem Resolve [facility] Ostium Ostium d ity of secundum secundum [place] atrial atrial Physici septal septal ans defect defect Status Status Problem Active Univers post patch post patch it y of closure of closure of [place] ASD ASD Physici ans Allergies, Adverse Reactions, Alerts This patient has no known allergies or adverse reactions. Family History Family Member Diagnosis Comments Start Date Stop Date Source Natural brother Diabetes MD Arthur on Grandchild -Unknown cancer MD Arthur on Natural mother Hypertension MD Carlton son Paternal grandfather Coronary artery MD Bonilla disease Family member Stroke MD Bonilla Social History Social Habit Start Date Stop Date Quantity Comments Source History [facility] MD Bon[place] Alcohol Std Drinks History [facility] MD Bonilla Alcohol Binge History of tobacco Current smoker MD Bonilla use History [facility] MD Bonilla Alcohol Frequency Alcohol intake 2020-10-10 2020-10-10 Current drinker of MD Bonilla 00:00:00 00:00:00 alcohol (finding) Cigarettes smoked 2017-01-11 2017-01-11 MD Tuan lombardo current (pack per 00:00:00 00:00:00 day) - Reported Cigarette 2017-01-11 2017-01-11 MD Bonilla pack-years 00:00:00 00:00:00 Tobacco use and 2017-01-11 2017-01-11 Smokeless tobacco MD Bonilla exposure 00:00:00 00:00:00 non-user History SDOH 2016-12-16 2016-12-16 very rarely MD Bonilla Alcohol Comment 00:00:00 00:00:00 Tobacco Comment 2016-12-16 2016-12-16 Quit 38 years ago MD Bonilla 00:00:00 00:00:00 Sex [birth year] MD Arthur on 00:00:00 00:00:00 Smoking Status Start Date Stop Date Source Ex-smoker 2017-01-11 00:00:00 2017-01-11 00:00:00 Brandt son Medications Ordered Filled Start Stop Current Ordering Indication Dosage Frequency Signature Comments Components Source Medication Medication Date Date Medication? Clinician (SIG) Name Name sotalol Yes 80mg Take 80 mg (BETAPACE) 3-03 by mouth Brandt so 80 mg 13:48: daily. n tablet 24 fexofenadin Yes 180mg Take 180 M D e (NOEL) 3-03 mg by Anderso 180 mg 13:48: mouth as n tablet 24 needed. aspirin 81 Yes TAKE 1 MD mg EC 6-28 TABLET BY Anderso tablet 00:00: MOUTH n 00 EVERY DAY lisinopril- Yes TAKE ONE MD hydrochloro 6-29 TABLET BY And erso thiazide 00:00: MOUTH n (PRINZIDE,Z 00 EVERY DAY ESTORETIC) 20-12.5 mg per tablet Protonix 40 Protonix 40 Yes U nivers MG Oral MG Oral ity of Tablet Tablet [place] Delayed Delayed Physici Release Release ans Meclizine Meclizine Yes Unive rs HCl TABS HCl TABS ity of [place] Physici ans Drisdol Drisdol Yes Univers CAPS CAPS ity of [place] Physici ans Zantac 150 Zantac 150 Yes Uni vers MG CAPS MG CAPS ity of [place] Physici ans raNITIdine raNITIdine Yes Uni vers 150 Max 150 Max ity of Strength Strength [place] TABS TABS Physici ans Vital Signs Vital Name Observation Time Observation Value Comments Source BP Systolic 2019-03-02 11:24:00 127 mm[Hg] [facility]i ty [facility] Physician s BP Diastolic 2019-03-02 11:24:00 79 mm[Hg] [facility]i ty [facility] Physician s Height 2019-03-02 11:24:00 66 [in_us] [facility]i [facility] Physician s Weight 2019-03-02 11:24:00 181 [facility] Body Mass Index 2019-03-02 11:24:00 29.21 kg/m2 [facility] [place] Physician s Heart Rate 2019-03-02 11:24:00 93 /min [facility] Phys[facility] s O2 SAT 2019-03-02 11:24:00 97 % [facility] Phys[facility] s Respiration Rate 2019-03-02 11:24:00 16 /min Univ ers[facility] [place] Physician s BP Systolic 2018-12-28 13:40:00 126 mm[Hg] [facility]i [facility] Physician s BP Diastolic 2018-12-28 13:40:00 70 mm[Hg] [facility] Physician s Weight 2018-12-28 13:40:00 84 [lb_av] [facility] [place] Physician s Height 2018-12-28 13:40:00 66 [in_us] [facility]i [facility] Physician s Body Mass Index 2018-12-28 13:40:00 13.56 kg/m2 [facility]ive [facility] Physician s Heart Rate 2018-12-28 13:40:00 84 /min [facility] [place] Physician s Respiration Rate 2018-12-28 13:40:00 16 /min [facility] [place] [facility] Procedures Procedure Date / Time Performed Performing Clinician [facility] e CT CHEST ABDOMEN PELVIS W WO 2020-10-11 01:10:00 Catherine Lu MD CONTRAST BILIARY POC CREATININE 2020-10-10 22:48:00 Catherine Lu MD COMPLETE BLOOD COUNT W/ 2020-10-10 22:12:00 Catherine Lu MD nderson INDICES COMPREHENSIVE METABOLIC PANEL 2020-10-10 22:12:00 Catherine Lu MD CANCER ANTIGEN 19-9 2020-10-10 22:12:00 Catherine Lu MD Brandt son GLUCOSE LEVEL 2020-10-10 22:12:00 Catherine Lu MD BLOOD UREA NITROGEN 2020-10-10 22:12:00 Catherine Lu MD Brandt son ELECTROLYTE PANEL 2020-10-10 22:12:00 [facility] SER[facility] CREAT[facility]INE 2020-10-10 22:12:00 Catherine Lu MD .GLOMERULAR FILTRATION RATE 2020-10-10 22:12:00 Catherine Lu MD CALCIUM LEVEL TOTAL 2020-10-10 22:12:00 Catherine Lu MD Brandt son ALBUMIN LEVEL 2020-10-10 22:12:00 Catherine Lu MD ALKALINE PHOSPHATASE 2020-10-10 22:12:00 Catherine Lue rs ALANINE AMINOTRANSFERASE 2020-10-10 22:12:00 Catherine Lu MD ASPARTATE AMINOTRANSFERASE 2020-10-10 22:12:00 Catherine Lu TOTAL PROTEIN 2020-10-10 22:12:00 Catherine Lu MD FRACTIONATED BILIRUBIN 2020-10-10 22:12:00 Catherine Lu MD Plan of Care Planned Activity Planned Date Details Comments Source Future Scheduled Test 1962 00:00:00 COVID-19 Vaccination MD Bonilla (1) [code = COVID-19 Vaccination (1)] Encounters Start End Encounter Admission Attending Care Care Encounter Source Date/Time Date/Time Type Type Clinicians Facility Department ID 2019-02-17 2019-02-17 Appointmen ZEV KAHN [facility] [id number] [facility] 11:45:00 11:45:00 t; MOHAN [facility] 2018-12-21 2018-12-21 Appointmen ZEV KAHN [facility] [id number] [facility] 14:00:00 14:00:00 t; MOHAN KAHN M.D. [facility] Surgery Physic ans Results Test Description Test Time Test Comments Results Result Comments Source Fractionated Bilirubin 2020-10-10 23:19:38 Test Item Value Reference Range Interpretation Comme nts Bili Total (test code = 0.7 mg/dL See_Comment Indo cyanine Green (ICG) may cause 5096) falsely elevate d bilirubin results. Total and direct bilirubin must not be measured from samples co ntaining indocyanine gre en. False elevation of total biliru bin can be seen in patients with I gG concentrations above 28 g/L. [Automated message] The system [employer] generated this result transmit adele reference range: <=1.2. T he reference range was not used to interpret this result as patricia l/abnormal. Bili Direct (test code = 0.2 mg/dL See_Comment Ind ocyanine Green (ICG) may cause 5094) falsely elevate d bilirubin results. Total and direct bilirubin must not be measured from samples co ntaining indocyanine gre en. [Automated message] The sy stem which generated this result transmitted reference range : <=0.3. The reference range was not used to interpret this result as normal/abnormal . Bili Indirect (test code = 0.5 mg/dL 0.0-0.9 5095) MD BonillaGlomerular Filtration [id number] 23:19:37 Test Item Value Reference Range Interpretation Comments eGFR-AA (test code = 68 See_Comment Normal eGFR: >= 60 8062) mL/min/1.73 m2N ote: The eGFR is madelaine culated using the CKD-E PI equation. The e GFR declines with a ge. eGFR <60 mL/min /1.73 m2 is considere d as "decreased". Th is equation should only be used for pat ients 18 and older. According to th e National Kidney Foundation's dney Disease Outcome Quality Initiat cherie (KDOQI) classif ication and 2012 Kidney Disease Improvi ng Global Outcomes (KDIGO) Clinica l Practice Guidel ine, the stage of CK D should be categ orized based on estima adele GFR. Stage Desc ription GFR mL/mi n/1.73 m21 Normal or h igh GFR >=902 Mildly decreased GFR 60-893a M ildly to moderately decreased GFR 45-593b Moderat lizy to severely decrea sed GFR 30-444 Darshana rely decreased GFR 15-295 Kidney f ailure <15 [Auto mated message] The sy stem which generated this result transmit adele reference range : >=60 mL/min/1.73 sq. m. The reference range was not used to int erpret this result as normal/abnormal . eGFR-DAREN (test code = 59 See_Comment L Normal eGFR: >= 60 8063) mL/min/1.73 m2N ote: The eGFR is madelaine culated using the CKD-E PI equation. The e GFR declines with a ge. eGFR <60 mL/min /1.73 m2 is considere d as "decreased". Th is equation should only be used for pat ients 18 and older. According to th e National Kidney Foundation's dney Disease Outcome Quality Initiat cherie (KDOQI) classif ication and 2012 Kidney Disease Improvi ng Global Outcomes (KDIGO) Clinica l Practice Guidel ine, the stage of CK D should be categ orized based on estima adele GFR. Stage Desc ription GFR mL/mi n/1.73 m21 Normal or h igh GFR >=902 Mildly decreased GFR 60-893a M ildly to moderately decreased GFR 45-593b Moderat lizy to severely decrea sed GFR 30-444 Darshana rely decreased GFR 15-295 Kidney f ailure <15 [Auto mated message] The sy stem which generated this result transmit adele reference range : >=60 mL/min/1.73 sq. m. The reference range was not used to int erpret this result as normal/abnormal . Lab Interpretation Abnormal (test code = 66276-2) MD BonillaAlkaline [id number] 23:19:36 Test Item Value Reference Range Interpretation Comments Alk Phos (test code = 4768) 54 U/L 35-104 MD BonillaAlbumin [id number] 23:19:35 Test Item Value Reference Range Interpretation Comments Albumin Lvl (test code 4.4 See_Comment [Aut omated message] The = 1875) system which ge nerated this result tra nsmitted reference range : 3.5 - 5.2 gm/dL. The refe rence range was not used to interpret this result as normal/abnormal . MD BonillaAspartate [id number] 23:19:33 Test Item Value Reference Range Interpretation Comments AST (test code = 25 U/L See_Comment [Automated message] The 9963) system which ge nerated this result transmit adele reference range : <=32. The reference range was not used to interpr et this result as patricia l/abnormal. MD BonillaTotal [id number] 23:19:32 Test Item Value Reference Range Interpretation Comments Total Protein (test code = 7649) 6.8 g/dL 6.4-8.3 MD BonillaElectrolyte [id number] 23:19:31 Test Item Value Reference Range Interpretation Comments Sodium Lvl (test code = 141 See_Comment [Au tomated message] 7576) The system [employer] generated this result transmitted ref erence range: 136 - 14 5 mEq/L. The refe rence range was not u sed to interpret this result as normal/abnor mal. Potassium Lvl (test code 3.7 See_Comment [A utomated message] = 3560) The system [employer] generated this result transmitted ref erence range: 3.5 - 5. 1 mEq/L. The refe rence range was not u sed to interpret this result as normal/abnor mal. Chloride (test code = 103 See_Comment [Auto mated message] 0111) The system [employer] generated this result transmitted ref erence range: 98 - 107 mEq/L. The refe rence range was not u sed to interpret this result as normal/abnor mal. CO2 (test code = 5227) 31 See_Comment H [Aut omated message] The system [employer] generated this result transmitted ref erence range: 22 - 29 mEq/L. The reference r sue was not used to interpret this result as normal/abnor mal. Anion Gap (test code = 7 See_Comment [Aut omated message] 9543) The system [employer] generated this result transmitted ref erence range: 4 - 14 m Eq/L. The reference r sue was not used to interpret this result as normal/abnor mal. Lab Interpretation (test Abnormal code = 63786-4) MD BonillaCalcium [id number] 23:19:30 Test Item Value Reference Range Interpretation Comments Calcium Lvl (test code = 5258) 9.8 mg/dL 8.4-10.2 MD Bonilla.Serum [id number] 23:19:29 Test Item Value Reference Range Interpretation Comments Creatinine (test code = 5399) 0.98 mg/dL 0.51-0.95 H Lab Interpretation (test code = Abnormal 34731-3) MD [id number] 23:19:28 Test Item Value Reference Range Interpretation Comments ALT (test code = 21 U/L See_Comment [Automated message] The 4708) system which ge nerated this result transmit adlee reference range : <=33. The reference range was not used to interpr et this result as patricia l/abnormal. MD [id number] 23:19:27 Test Item Value Reference Range Interpretation Comments BUN (test code = 5055) 17 mg/dL 6-23 MD BonillaGlucose [id number] 23:19:26 Test Item Value Reference Range Interpretation Comments Glucose Level (test 93 mg/dL 70-99 Effectiv e 03/04/16, the code = 5699) glucose referen ce intervals have been updated based o n [place] Diabet es [employer] erik delines (Standards of M edical Care in Diabete s 2016. Diabetes Care 2 016; 39: S13-S22).Fastin g blood glucose:Normal: 70 99 mg/dLImpaire d fasting glucose (increa sed risk for diabetes or pre-diabetes): 100 125 mg/dLDiabet es mellitus: >/=1 26 mg/dL Random blood glucose:Normal: 70 199 mg/dLNote: Random glucose >100 mg /dL is associated with increased risk for diabetes MD Cortez [id number] 23:19:24 Test Item Value Reference Range Interpretation Comments CA 19-9 (test code 22.0 U/mL See_Comment Results g reater than 9500 = 5171) U/mL may not be reliable due to matrix e ffect with extended diluti on as it exceeds the man ufacturer's recommended foy it. Caution should be exerc ised when interpreting boyd ch values and done in con junction with clinical c ontext. [Automated mess age] The system which ge nerated this result tra nsmitted reference range : <=35.0. The reference r sue was not used to int erpret this result as patricia l/abnormal. [facility] [id number] 22:49:39 Test Item Value Reference Range Interpretation Comments POC Crea (test 0.9 mg/dL 0.6-1.3 Medications, especially code = 20767-0) hydroxyurea or supplements, such as ascorba te, can interfere with test results causing a false ly and significantlyhi gher result than expected. If a problem is suspected wi th a patient's result, a sampl e should be sent to the lab oratory for confirmatory te sting. Method description: Th e i-STAT is an analyzer used f or in vitro quantification of various analytes in who le blood. The device uses a s idalia disposable cart ridge which contains microf abricated sensors, a carmine bration solution, fluid ics system, and a waste shashank mber. Each test cartridge contains chemically sens itive biosensors on a silicon chip that are config ured to perform specifi c tests. The microfabricated sensors measure analyte concentration by an electroch emical assay. POC eGFR-AA 75 See_Comment Normal eGFR >= 60 mL/min/1.73 (test code = m2 The eGFR is calculated 22743-5) using the CKD-E PI equation. The eGFR declin es with age. eGFR <60 mL/min /1.73 m2 is considered as " decreased" This equation s hould only be used for patien ts 18 and older. Accordin g to the National Kidney Foundation's Kidney Disease Outcome Quality Initiat cherie (KDOQI) classification and 2012 Kidney Disease Improving Global Outcomes (KDIGO) Clinical Practi ce Guideline, the stage of CK D should be categorized bas ed on estimated GFR. Stage Description GFR mL/min/1.73 m21 Kidney tamara ge with normal or high GFR >=902 Kidney damage with mil d decrease in GFR 60-893a Mild to moderate decrea se in GFR 45-593b Moderat e to severe decrease in GFR 30-444 Severe decrease in GFR 15-295 Kidney f ailure <15 (or dialysis) [Automated message] The sy stem which generated this result transmitted ref erence range: >=60 mL/min/1.7 3 m2. The reference range was not used to interpret th is result as normal/abnormal . POC eGFR-DAREN 65 See_Comment Normal eGFR >= 60 mL/min/1.73 (test code = m2 The eGFR is calculated 65608-6) using the CKD-E PI equation. The eGFR declin es with age. eGFR <60 mL/min /1.73 m2 is considered as " decreased" This equation s hould only be used for patien ts 18 and older. Accordin g to the National Kidney Foundation's Kidney Disease Outcome Quality Initiat cherie (KDOQI) classification and 2012 Kidney Disease Improving Global Outcomes (KDIGO) Clinical Practi ce Guideline, the stage of CK D should be categorized bas ed on estimated GFR. Stage Description GFR mL/min/1.73 m21 Kidney tamara ge with normal or high GFR >=902 Kidney damage with mil d decrease in GFR 60-893a Mild to moderate decrea se in GFR 45-593b Moderat e to severe decrease in GFR 30-444 Severe decrease in GFR 15-295 Kidney f ailure <15 (or dialysis) [Automated message] The sy stem which generated this result transmitted ref erence range: >=60 mL/min/1.7 3 m2. The reference range was not used to interpret th is result as normal/abnormal . POC Clean Dev Yes (test code = 6672) MD BonillaComplete Blood Count w/o [id number] 22:46:27 Test Item Value Reference Range Interpretation Comments WBC (test code = 7.2 K/uL 4.0-11.0 6690-2) RBC (test code = 789-8) 4.38 See_Comment [Au tomated message] The system [employer] generated this result transmitted ref erence range: 4.00 - 5 .50 M/uL. The refer ence range was not u sed to interpret this result as normal/abnor mal. Hgb (test code = 718-7) 13.7 See_Comment [Au tomated message] The system [employer] generated this result transmitted ref erence range: 12.0 - 1 6.0 gm/dL. The refe rence range was not u sed to interpret this result as normal/abnor mal. Hct (test code = 42.0 % 37.0-47.0 4544-3) MPV (test code = 787-2) 11.0 fL 4.0-10.4 H MCH (test code = 785-6) 31.3 pg 27.0-31.0 H MCHC (test code = 32.6 See_Comment [Automate d message] 786-4) The system [employer] generated this result transmitted ref erence range: 31.0 - 3 6.0 gm/dL. The refe rence range was not u sed to interpret this result as normal/abnor mal. RDW-SD (test code = 48.0 fL 35.1-46.3 H 95231-3) RDW-CV (test code = 13.5 % 12.0-15.5 788-0) Platelet count (test 196 K/uL 140-440 code = 777-3) INRBC (test code = 0.0 % See_Comment The INRBC (instrument 5974) NRBC) value ref lects the enumeration of nucleated red b lood cells contained in a 200uL sampleof whole blood analyzed by the instrument. Thi s value maydiffer from the NRBC value repo rted in a manual differential,wh ich is based on a 100 cell differential. [Automated mess age] The system [employer] generated this result transmitted ref erence range: <=0.0. T he reference range was not used to int erpret this result as normal/abnormal . Lab Interpretation Abnormal (test code = 16247-1) MD Bonilla
--- OUTSIDE RECORDS SUMMARY | 2021-07-12 19:40 | XMS REPORT | Clinical Summary ---
:1950 Author Organization [facility] MD [facility] Address [address] [place] [address] Care Team Providers Name Role Phone Leydi Carrizales MD Unavailable Tru Delvalle MD Primary Care Provider Allergies No known active allergies Medications Medication Sig Dispensed Refills Start Date End Date Status lisinopril-hydrochlorot TAKE ONE TABLET 5 02/04/2017 Active hiazide BY MOUTH EVERY (PRINZIDE,ZESTORETIC) DAY 20-12.5 mg per tablet sotalol (BETAPACE) 80 Take 80 mg by 0 Active mg tablet mouth daily. fexofenadine (NOEL) Take 180 mg by 0 Active 180 mg tablet mouth as needed. 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; restarted on sotaolol No further issues, EKG 03/08 SR exterminator helper termite use antithrombotic 03/08/2019 Overview: Last dose Plavix 03/01/19 Ongoing ASA 81mg Gastroesophageal reflux disease 03/08/2019 Overview: Currently asymptomatic, takes Zantac or Protonix prn Dyslipidemia 03/08/2019 Overview: Pt was previously on Lipitor, however th is was discontinued on 03/01 by outside marketing financial analyst due to "low cholesterol levels and upcoming surgery" per pt's daughter Ostium secundum type atrial septal defect 11/29/2018 Overview: S/p ASD repair on 01/30/19 and was discha rged on 02/03/19 without complications discharged with aspirin 81mg and plavix 75mg daily for 30 days Last Assessment & Plan: -Currently, patient is without any signi ficant cardiac symptoms. Patient does not have any signs of heart failure. -Patient has evidence of ostium secundum ASD with right-sided chamber dilation based on outside records. -We will refer the patient to Dr. Jerrica pacheco for a second opinion for ASD closure. Essential (primary) hypertension 11/29/2018 Overview: BP Readings from Last 3 Encounters: 03/08/19 118/75 12/02/18 126/75 11/29/18 126/70 Last Assessment & Plan: -Blood pressure today is 126/70 mmHg -Continue taking current hypertension me dication regimen. Obesity 01/12/2017 Cholangiocarcinoma 12/22/2016 Cancer Staging: Clinical stage from 2016: Stage 0 (Tis, N0, M0) - Unsigned Encounters Date Type Specialty Care Team Description 04/21/2021 Orders Only Gastrointestinal Surgery Catherine uL, GERIATRIC PHYSICAL THERAPIST 10/17/2020 Orders Only Gastrointestinal Surgery Catherine Lu Pap illary mass of GERIATRIC PHYSICAL THERAPIST biliary tract (Primary Dx) 10/11/2020 Telemedicine Gastrointestinal Surgery Erich Delvalle illary mass of Tru biliary tract (Primary Dx) 10/10/2020 Hospital Encounter Radiology Catherine Lu, Papillary mass of GERIATRIC PHYSICAL THERAPIST biliary tract 10/10/2020 Hospital Encounter Lab Catherine Lu, Papillary mass of GERIATRIC PHYSICAL THERAPIST biliary tract 10/10/2020 Travel 09/26/2020 Orders Only Gastrointestinal Surgery Catherine Lu NP after 07/12/2020 Surgical History Surgery Date Site/Laterality Comments MN EXCIS BILE DUCT 01/11/2017 Abdomen/N/A Procedure: CO MMON BILE TUMOR,EXTRAHEPATIC DUCT RESECTIO N; Surgeon: Gianluca Delvalle MD; Loca tion: MAIN OR; Servic e: SURG ONC - LIVER MN ANAST,CLARA-EN-Y,EXTRAHEP TO GI 01/11/2017 Abdomen/N/A Procedure: CLARA-EN-Y TRCT HEPATICO-JEJUNOS ALMA ROSA; Surgeon: Gianluca Delvalle MD; Loca tion: MAIN OR; Servic e: SURG ONC - LIVER MN EXPLORE DEEP NODE(S), NECK 01/11/2017 Abdomen/N/A Pr ocedure: PORTAL NODE DISSECTION ; Vazquez rgeon: Tru Delvalle MD; Location: MAIN O R; Service: SURG ON C - LIVER MN LAP,DIAGNOSTIC ABDOMEN 01/11/2017 Abdomen/N/A Proced ure: DIAGNOSTIC LAPAROSCOPY OF A BDOMEN, PERITONEUM, AND OMENTUM; Surgeon: Josh Delvalle MD; Loca tion: MAIN OR; Servic e: SURG ONC - LIVER MN EXCIS BILE DUCT 01/11/2017 Abdomen/N/A Procedure: CO MMON BILE TUMOR,EXTRAHEPATIC DUCT RESECTIO N; Surgeon: Melania Singleton MD; Lo cation: MAIN OR; Servic e: SURG ONC - LIVER MN RESEC LIVER,PART LOBECTOMY 01/11/2017 Abdomen/N/A Pr ocedure: PARTIAL LOBECTOMY OF JAVON ER with caudate resectio n; Surgeon: Gianluca Delvalle MD; Loca tion: MAIN OR; Servic e: SURG ONC - LIVER MN RESEC LIVER,TOTAL RT LOBECTOMY 01/11/2017 Abdomen/N/A Procedure: RIGHT HEPATECTOMY; Vazquez rgeon: Tru Delvalle MD; Location: MAIN O R; Service: SURG ON C - LIVER MN CHG ULTRASONIC GUIDANCE, 01/11/2017 N/A Proc edure: ULTRASOUND INTRAOPERATIVE GUIDENCE, INTRA OP by surgeon; Nancy n: Tru Delvalle MD; Location: MAIN O R; Service: SURG ON C - LIVER MN ESOPHAGOGASTRODUODENOSCOPY US 09/30/2018 Esophagus/N/A Procedure: UPPER SCOPE W/ADJ STRXRS GASTROINTESTI NAL ENDOSCOPY OF ESO PHAGUS, STOMACH, OR DUOD ENUM ANDJ ADJACENT STRUCTURES, WITH ENDOSCOPIC ULTRA SOUND EXAMINATION; Vazquez rgeon: Colton Sewell MD; Location: MAIN ENDOSCOPY; Serv ice: GASTROENTEROLOGY MN ERCP DX COLLECTION SPECIMEN 09/30/2018 N/A P rocedure: DIAGNOSTIC BRUSHING/WASHING ENDOSCOPIC RETR OGRADE CHOLANGIOPANCREA TOGRAPHY ; Surgeon: Dann Sewell MD; Location: [facility] ENDOSCOPY; Serv ice: GASTROENTEROLOGY ASD REPAIR 01/30/2019 Medical History Medical History Date Comments Cancer Hypertension Irregular heart beat Depressive disorder Anxiety History of malignant neoplasm of gastrointestinal tract Gastroesophageal reflux disease Chronic constipation Family History Medical History Relation Name Comments Diabetes Brother -Unknown cancer Grandchild Hypertension Mother Coronary artery disease Paternal Grandfather Stroke Neg Hx Relation Name Status Comments Brother Grandchild Mother Paternal Grandfather Social History Tobacco Use Types Packs/Day Years Used Date Former Smoker 0.25 6 Quit: 1979 Smokeless Tobacco: Never Used Comments: Quit 38 years ago Alcohol Use Standard Drinks/Week Comments Yes 0 (1 standard drink = 0.6 oz pure alcoho l) very rarely Alcohol Habits Answer Date Recorded How often do you have a drink containing alcohol? Not asked How many drinks containing alcohol do you have on a typical Not asked day when you are drinking? How often do you have six or more drinks on one occasion? No t asked Comment: very rarely 12/16/2016 Sex Assigned at Date Recorded Not on file Obstetrics History Last Filed Vital Signs Not on file Plan of Treatment Date Type Specialty Care Team Description 07/22/2021 Appointment Lab Catherine Lu NP [address], [place] [address] ([facility] [facility]) 07/22/2021 Appointment Radiology Catherine Lu NP [address], [place] [address] ([place] cr) 07/23/2021 Office Visit Gastrointestinal Surgery Tru Delvalle MD [address], [place] [address] (Wo rk) Health Maintenance Due Date Last Done Comments COVID-19 Vaccination (1) 1962 Procedures Procedure Name Priority Date/Time Associated Comments Diagnosis CT CHEST ABDOMEN PELVIS Routine 10/10/2020 7:10 Papillary mas s of Results for this W WO CONTRAST BILIARY PM AUTOMOBILE RELOCATION ENGINEER biliary tract proce dure are in the results section. POC CREATININE Routine 10/10/2020 4:48 Results f or this PM AUTOMOBILE RELOCATION ENGINEER procedure are i n the results section. FRACTIONATED BILIRUBIN Routine 10/10/2020 4:12 Papillary mass of Results for this PM AUTOMOBILE RELOCATION ENGINEER biliary tract procedure are in the results section. TOTAL PROTEIN Routine 10/10/2020 4:12 Papillary mass of Resul ts for this PM AUTOMOBILE RELOCATION ENGINEER biliary tract procedure are in the results section. ASPARTATE Routine 10/10/2020 4:12 Papillary mass of Result s for this AMINOTRANSFERASE PM AUTOMOBILE RELOCATION ENGINEER biliary tract procedure are in the results section. ALANINE AMINOTRANSFERASE Routine 10/10/2020 4:12 Papillary ma ss of Results for this PM AUTOMOBILE RELOCATION ENGINEER biliary tract procedure are in the results section. ALKALINE PHOSPHATASE Routine 10/10/2020 4:12 Papillary mass o f Results for this PM AUTOMOBILE RELOCATION ENGINEER biliary tract procedure are in the results section. ALBUMIN LEVEL Routine 10/10/2020 4:12 Papillary mass of Resul ts for this PM AUTOMOBILE RELOCATION ENGINEER biliary tract procedure are in the results section. CALCIUM LEVEL TOTAL Routine 10/10/2020 4:12 Papillary mass of Results for this PM AUTOMOBILE RELOCATION ENGINEER biliary tract procedure are in the results section. .GLOMERULAR FILTRATION Routine 10/10/2020 4:12 Papillary mass of Results for this RATE PM AUTOMOBILE RELOCATION ENGINEER biliary tract procedure are in the results section. SERUM CREATININE Routine 10/10/2020 4:12 Papillary mass of Re sults for this PM AUTOMOBILE RELOCATION ENGINEER biliary tract procedure are in the results section. ELECTROLYTE PANEL Routine 10/10/2020 4:12 Papillary mass of R esults for this PM AUTOMOBILE RELOCATION ENGINEER biliary tract procedure are in the results section. BLOOD UREA NITROGEN Routine 10/10/2020 4:12 Papillary mass of Results for this PM AUTOMOBILE RELOCATION ENGINEER biliary tract procedure are in the results section. GLUCOSE LEVEL Routine 10/10/2020 4:12 Papillary mass of Resul ts for this PM AUTOMOBILE RELOCATION ENGINEER biliary tract procedure are in the results section. CANCER ANTIGEN 19-9 Routine 10/10/2020 4:12 Papillary mass of Results for this PM AUTOMOBILE RELOCATION ENGINEER biliary tract procedure are in the results section. COMPREHENSIVE METABOLIC Routine 10/10/2020 4:12 Papillary mas s of PANEL PM AUTOMOBILE RELOCATION ENGINEER biliary tract COMPLETE BLOOD COUNT W/ Routine 10/10/2020 4:12 Papillary mas s of Results for this INDICES PM AUTOMOBILE RELOCATION ENGINEER biliary tract procedure are in the results section. 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 Incidental findings and postsurgical changes as above. 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 Findings: CT thorax: Subsegmental atelectasis and patchy area s of mosaic perfusion without lung mass or consolidation. There is no significant mediastinal, hilar or axillary lymphadenopathy. Atherosclerotic changes of the a merary and its branches. Dilated main pulm onary artery and its branches suggest pulmonary arterial hypertension. Mitral annular calcifications seen; the heart is otherwise unremarkable. No pleural or mir cardial effusion. The trachea and bilate ral major airways are unremarkable. A 1.7 cm left thyroid heterogeneous nodule again seen. Multilevel degenerative changes of the visualized axial skeleton. CT abdomen and pelvis: Remote postsurgical changes of right hep atectomy, partial resection of the caudate lobe, regional lymphadenectomy, bile duct resection and Clara-en-Y hepaticojejunostomy. A 2.3 x 1.7 cm (series 16, image 251) lobulated, intraluminal, enhancing soft tissue mass within the left hepatic duct is relatively stable with associated upstream ductal dilatation. Multifocal, polypoid masses within the dilated com mon bile duct are also relatively stable ; the common bile duct measures 2.6 x 2.1 cm (series 16, image 276). The portal vein and its intrahepatic branches, hepatic veins and the inferior vena cava are p atent. There is no significant regional, retroperitoneal, mesenteric or pelvic lymphadenopathy. There is no ascites. The spleen,, pancreas, both adrenals and bilateral kidneys are normal. Stable small right kidney cyst. There is no bowel obstruction. Incidental colonic diverticulosis. Leiomyomatous uterus. There is no solid adnexal mass. The urinary bladder is normal. Multilevel degenerative changes of the visualized axial skeleton. Atherosclerotic changes of the abdominal aorta and its branches. 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 Findings: CT thorax: Subsegmental atelectasis and patchy area s of mosaic perfusion without lung mass or consolidation. There is no significant mediastinal, hilar or axillary lymphadenopathy. Atherosclerotic changes of the aorta and its branches. Dilated main pulmonary artery and its branches suggest pulmonary arterial hypertension. Mitral annular calcifications seen; the heart is otherwise unremarkable. No pleural or pericardial effusion. The trachea and bilateral major airways are unremark able. A 1.7 cm left thyroid heterogeneous nodule again seen. Multilevel degenerative changes of the visualized axial skeleton. CT abdomen and pelvis: Remote postsurgical changes of right hep atectomy, partial resection of the caudate lobe, regional lymphadenectomy, bile duct resection and Clara-en-Y hepaticojejunostomy. A 2.3 x 1.7 cm (series 16, image 251) lobulated, intraluminal, enhancing soft tissue mass within the left hepatic duct is relatively stable with associated upstream ductal dilatation. Multifocal, polypoid masses within the dilated common bile duct are also relatively stable; the common bile duct measures 2. 6 x 2.1 cm (series 16, image 276). The portal vein and its intrahepatic branches, hepatic veins and the inferior vena cava are patent. There is no significant regional, retroperitoneal, mesenteric or pelvic ly mphadenopathy. There is no ascites. The spleen,, pancreas, both adrenals and bilateral kidneys are normal. Stable small right kidney cyst. There is no bowel obstruction. Incidental colonic diverticulosis. Leiomyomatous uterus. There is no solid adnexal mass. The urinary bladder is normal. Mul tilevel degenerative changes of the visualized axial skeleton. Atherosclerotic changes of the abdominal aorta and its branches. 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 Incidental findings and postsurgical changes as above. Performing Organization Address City/State/ZIP Code Phon e Number [id number] POC Creatinine (10/10/2020 4:48 PM AUTOMOBILE RELOCATION ENGINEER) POC Crea 0.9 0.6 - 1.3 POC [facility] Comment: mg/dL Medications, especially hydr oxyurea or supplements, such as ascorbate, can interfere with test results causing a falsely and significantlyhigher result than expected. If a problem is suspected with a patient's result, a sample should be sent to the laboratory for confirmatory testing. Method description: The i-ST AT is an analyzer used for in vitro quantification of various analytes in whole blood. The device uses a single disposable cartridge which contains microfabricated sensors, a calibration solution, fluidics system, and a waste chamber. Each test cartridge contains chemically sensitive biosensors on a silicon chip that are configured to perform specific tests. The microfabricated sensors measure analyte concentration by an electrochemical assay. POC eGFR-AA 75 >=60 POC [facility] Comment: mL/min/1.73 Normal eGFR >= 60 mL/min/1.73 m2 m2 The eGFR is calculated using the CKD-EPI equation. The eGFR declines with age. eGFR <60 mL/min/1.73 m2 is considered as "decreased" This equation should only be used for patients 18 and older. According to the [facility]'s Kidney Disease Outcome Quality Initiative (KDOQI) classification and 2012 Kidney Disease Improving Global Outcomes (KDIGO) Clinical Practice Guideline, the stage of CKD should be categorized based on estimated GFR. Stage Description GFR mL/min/1.73 m2 1 Kidney damage with normal or high GFR >=90 2 Kidney damage with mild decrease in GFR 60-89 3a Mild to moderate decrease in GFR 45-59 3b Moderate to severe decrease in GFR 30-44 4 Severe decrease in GFR 15-29 5 Kidney failure <15 (or dialysis) POC eGFR-DAREN 65 >=60 POC [facility] Comment: mL/min/1.73 Normal eGFR >= 60 mL/min/1.73 m2 m2 The eGFR is calculated using the CKD-EPI equation. The eGFR declines with age. eGFR <60 mL/min/1.73 m2 is considered as "decreased" This equation should only be used for patients 18 and older. According to the [facility]'s Kidney Disease Outcome Quality Initiative (KDOQI) classification and 2012 Kidney Disease Improving Global Outcomes (KDIGO) Clinical Practice Guideline, the stage of CKD should be categorized based on estimated GFR. Stage Description GFR mL/min/1.73 m2 1 Kidney damage with normal or high GFR >=90 2 Kidney damage with mild decrease in GFR 60-89 3a Mild to moderate decrease in GFR 45-59 3b Moderate to severe decrease in GFR 30-44 4 Severe decrease in GFR 15-29 5 Kidney failure <15 (or dialysis) POC Clean Dev Yes POC [facility] Specimen Blood Performing Organization Address City/State/ZIP Code Phon e Number POC [facility] (ABNORMAL) .Serum Creatinine (10/10/2020 4:12 PM AUTOMOBILE RELOCATION ENGINEER) Pathologist Sig nature Creatinine 0.98 (H) 0.51 - 0.95 mg/dL [facility] Specimen Blood Performing Organization Address City/State/ZIP Code Phon e Number [facility] Unless otherwise noted, [place] [address] CENTER all lab tests performed by: Division of Pathology and Laboratory Medicine [address] (ABNORMAL) Glomerular Filtration Rate (10/10/2020 4:12 PM AUTOMOBILE RELOCATION ENGINEER) eGFR-AA 68 >=[address] [facility] Comment: mL/min/1.73 DIAGNOSTIC CENTER Normal eGFR: >= 60 mL/min/1.73 m2 sq. m Note: The eGFR is calculated using the CKD-EPI equation. The eGFR declines with age. eGFR <60 mL/min/1.73 m2 is considered as "decreased". This equation should only be used for patients 18 and older. According to the [facility]'s Kidney Disease Outcome Quality Initiative (KDOQI) classification and 2012 Kidney Disease Improving Global Outcomes (KDIGO) Clinical Practice Guideline, the stage of CKD should be categorized based on estimated GFR. Stage Description GFR mL/min/1.73 m2 1 Normal or high GFR >=90 2 Mildly decreased GFR 60-89 3a Mildly to moderately decreased GFR 45-59 3b Moderately to severely decreased GFR 30-44 4 Severely decreased GFR 15-29 5 Kidney failure <15 eGFR-DAREN 59 (L) >=[address] [facility] Comment: mL/min/1.73 DIAGNOSTIC CENTER Normal eGFR: >= 60 mL/min/1.73 m2 sq. m Note: The eGFR is calculated using the CKD-EPI equation. The eGFR declines with age. eGFR <60 mL/min/1.73 m2 is considered as "decreased". This equation should only be used for patients 18 and older. According to the [facility]'s Kidney Disease Outcome Quality Initiative (KDOQI) classification and 2012 Kidney Disease Improving Global Outcomes (KDIGO) Clinical Practice Guideline, the stage of CKD should be categorized based on estimated GFR. Stage Description GFR mL/min/1.73 m2 1 Normal or high GFR >=90 2 Mildly decreased GFR 60-89 3a Mildly to moderately decreased GFR 45-59 3b Moderately to severely decreased GFR 30-44 4 Severely decreased GFR 15-29 5 Kidney failure <15 Specimen Blood Performing Organization Address City/[facility] Phon e Number [facility] Unless otherwise noted, [address] all lab tests performed by: Division of Pathology and Laboratory Medicine [address] [place] [address] Fractionated Bilirubin (10/10/2020 4:12 PM AUTOMOBILE RELOCATION ENGINEER) Pathologist [facility] Bili Total 0.7 <=1.2 mg/dL [facility] Comment: DIAGNOSTIC CENTER Indocyanine Green (ICG) may cause falsely elevated bilirubin results. Total and direct bilirubin must not be measured from samples containing indocyanine green. False elevation of total carson irubin can be seen in patients with IgG concentrations above 28 g/L. Bili Direct 0.2Comment: <=0.3 mg/dL [facility] Indocyanine Green DIAGNOSTIC CENTER (ICG) may cause falsely elevated bilirubin results. Total and direct bilirubin must not be measured from samples containing indocyanine green. Bili Indirect 0.5 0.0 - 0.[address] [facility] mg/dL DIAGNOSTIC CENTER Specimen Blood Performing Organization Address City/[facility] Phon e Number [facility] Unless otherwise noted, [address] all lab tests performed by: Division of Pathology and Laboratory Medicine [address] [place] [address] CA 19-9 (10/10/2020 4:12 PM AUTOMOBILE RELOCATION ENGINEER) Pathologist [facility] [place] 19-9 22.0Comment: Results <=35.0 U/mL [facility] greater than 9500 U/mL DIAGNOSTIC CENTER may not be reliable due to matrix effect with extended dilution as it exceeds the field service tech's recommended limit. Caution should be exercised when interpreting such values and done in conjunction with clinical context. Specimen Blood Performing Organization Address City/[facility] Phon e Number [facility] Unless otherwise noted, [place], [place] [address] CENTER all lab tests performed by: Division of Pathology and Laboratory Medicine [address] (ABNORMAL) Complete Blood Count w/o Differential (10/10/2020 4:12 PM AUTOMOBILE RELOCATION ENGINEER) WBC 7.2 4.0 - 11.[address] [facility] K/uL [facility] RBC 4.38 4.00 - 5.[address] [facility] M/uL [facility] Hgb 13.7 12.0 - 16.[address] [facility] gm/dL [facility] Hct 42.0 37.0 - 47.0 % [facility] MCV 96 82 - 98 fL [facility] MCH 31.3 (H) 27.0 - 31.0 pg [facility] MCHC 32.6 31.0 - 36.[address] [facility] gm/dL [facility] RDW-SD 48.0 (H) 35.1 - 46.3 fL [facility] RDW-CV 13.5 12.0 - 15.5 % [facility] Platelet count 196 140 - 440 K/uL [facility] MPV 11.0 (H) 4.0 - 10.4 fL [facility] INRBC 0.0 <=0.0 % [facility] Comment: CANCER CENTER The INRBC (instrument NRBC) value reflects the enumera tion of nucleated red blood cells contained in a 200uL samp le of whole blood analyzed by the instrument. This value may differ from the NRBC value reported in a manual differ ential, which is based on a 100 cell differential. Specimen Blood Performing Organization Address City/[facility] Phon e Number [facility] CANCER Unless otherwise noted, [place] [address] [place] all lab tests performed by: Division of Pathology and Laboratory Medicine [facility] BUN (10/10/2020 4:12 PM AUTOMOBILE RELOCATION ENGINEER) Pathologist Sig nature BUN 17 6 - 23 mg/dL [facility] CE NTER Specimen Blood Performing Organization Address City/[facility]/ZIP [facility] Phon e Number [facility] Unless otherwise noted, [address] all lab tests performed by: Division of Pathology and Laboratory Medicine [address] ALT (10/10/2020 4:12 PM AUTOMOBILE RELOCATION ENGINEER) Pathologist Sig nature ALT 21 <=33 U/L [facility] [facility] Specimen Blood Performing Organization Address City/[facility]/ZIP Code Phon e Number [address] [facility] Unless otherwise noted, [address] all lab tests performed by: Division of Pathology and Laboratory Medicine [address] Aspartate Aminotransferase (10/10/2020 4:12 PM AUTOMOBILE RELOCATION ENGINEER) Pathologist Sig nature AST 25 <=32 U/L [address] [facility] Specimen Blood Performing Organization Address [facility] Phon e Number [address] [facility] Unless otherwise noted, [address] all lab tests performed by: Division of Pathology and Laboratory Medicine [address] Total Protein (10/10/2020 4:12 PM AUTOMOBILE RELOCATION ENGINEER) Pathologist Sig nature Total Protein 6.8 6.4 - 8.3 g/dL [address] [facility] [facility] Specimen Blood Performing Organization Address City/[facility]/ZIP Code Phon e Number [address] [facility] Unless otherwise noted, [address] all lab tests performed by: Division of Pathology and Laboratory Medicine [address] Alkaline Phosphatase (10/10/2020 4:12 PM AUTOMOBILE RELOCATION ENGINEER) Pathologist Sig nature Alk Phos 54 35 - 104 U/L [address] [facility] CE NTER Specimen Blood Performing Organization Address City/[facility]/ZIP Code Phon e Number [address] [facility] Unless otherwise noted, [address] all lab tests performed by: Division of Pathology and Laboratory Medicine [address] Glucose Level (10/10/2020 4:12 PM AUTOMOBILE RELOCATION ENGINEER) Glucose Level 93 70 - 99 mg/dL [facility] Comment: [facility] Effective 03/04/16, the gluco se reference intervals have been updated based on [place] [employer] guidelines (Standards of Medical Care in Diabetes 2016. Diabetes Care 2016; 39: S13-S22). Fasting blood glucose: Normal: 70 99 mg/dL Impaired fasting glucose (in creased risk for diabetes or pre-diabetes): 100 125 mg/dL Diabetes mellitus: >/=126 mg/dL Random blood glucose: Normal: 70 199 mg/dL Note: Random glucose >100 mg/dL is assoc iated with increased risk for diabetes Specimen Blood Performing Organization Address City/[facility] Phon e Number [address] [facility] Unless otherwise noted, [address] all lab tests performed by: Division of Pathology and Laboratory Medicine [address] Calcium Level (10/10/2020 4:12 PM AUTOMOBILE RELOCATION ENGINEER) Pathologist Sig nature Calcium Lvl 9.8 8.4 - 10.2 mg/dL [facility] Specimen Blood Performing Organization Address [facility] Phon e Number [address] [facility] Unless otherwise noted, [address] all lab tests performed by: Division of Pathology and Laboratory Medicine [facility]5 May Hussein Albumin Level (10/10/2020 4:12 PM AUTOMOBILE RELOCATION ENGINEER) Pathologist Sig nature Albumin Lvl 4.4 3.5 - 5.2 gm/dL [facility] Specimen Blood Performing Organization Address [facility] Phon e Number [address] [facility] Unless otherwise noted, [address] all lab tests performed by: Division of Pathology and Laboratory Medicine Kassie Hussein (ABNORMAL) Electrolyte Panel (10/10/2020 4:12 PM AUTOMOBILE RELOCATION ENGINEER) Pathologist Sig nature Sodium Lvl 141 136 - 145 mEq/L [facility] Potassium Lvl 3.7 3.5 - 5.1 mEq/L [facility] Chloride 103 98 - 107 mEq/L [facility] CO2 31 (H) 22 - 29 mEq/L [facility] Anion Gap 7 4 - 14 mEq/L [facility] Specimen Blood Performing Organization Address [facility] Phon e Number [address] [facility] Unless otherwise noted, [address] all lab tests performed by: Division of Pathology and Laboratory Medicine Kassie Hussein after 07/12/2020 Insurance Payer Benefit Plan / Subscriber ID Effective Phone Address T ype Group Dates [facility] MEDICARE [id number] 2018-Pres [address] Medicare HEALTHCARE ADVANTAGE ent [place] SOLUTIONS [id number] Advance Directives Code Status Date Activated Date Inactivated Comments Full Code 01/11/2017 8:59 PM 01/15/2017 2:09 PM Care Teams Drier And Pulverizer Tender Relationship Specialty Start Date End Date Leydi Carrizales MD PCP - External Follow Hematology and Oncology 11/23/16 [address] [place] [address] Tru Delvalle, PCP - General Gastroenterology Surgery 12/14/[address] [place] [id number]
[2021-07-12] MEDS ORDERED: NA CHLORIDE 0.9% 2,000 ML ONE (19:56)
[2021-07-12 20:24] LABS: Absolute Lymphocytes (CBC) 0.4 K/uL (0.7-4.9); Basophils % 0.3 % (0-1.3); Hematocrit 40.8 % (36.0-45.0); Lymphocytes % 3.3 % (15.3-44.8); MPV 8.8 fL (7.6-11.3); RBC Red Blood Cell Count 4.39 M/uL (3.86-4.86)
[2021-07-12 20:27] LABS: Protime INR 1.1
[2021-07-12 20:42] LABS: ALT/SGPT 36 U/L (12-78); AST/SGOT 39 U/L (15-37); Albumin 3.4 g/dL (3.4-5.0); Alkaline Phosphatase 60 U/L (45-117); Amylase 44 U/L (25-115); BUN Blood Urea Nitrogen 19 mg/dL (7-18); Bicarbonate 25 mmol/L (21-32); Bilirubin Direct 0.4 mg/dL (0-0.2); Creatine Phosphokinase 52 U/L (26-192); Glucose Level 111 mg/dL (74-106); Lipase 154 U/L (73-393); NT PRO-BNP 474 pg/mL (<125); Potassium 3.2 mmol/L (3.5-5.1); Protein, Total 6.8 g/dL (6.4-8.2); Sodium Level 142 mmol/L (136-145); Troponin (Emerg Dept Use Only) < 0.02 ng/mL (0.0-0.045)
[2021-07-12 20:44] LABS: CKMB Creatine Kinase MB < 1.0 ng/mL (1.0-3.6)
[2021-07-12 20:55] LABS: Blood Morphology Comment NOT SEEN (NOT SEEN); Platelet Estimate DECR; Platelets, Giant OCC
[2021-07-12 21:07] LABS: SARS-COV-2 RT PCR NEGATIVE (NEGATIVE)
[2021-07-12] MEDS ORDERED: NA CHLORIDE 0.9% 100 ML ONE (21:16)
[2021-07-12] MEDS ORDERED: CEFEPIME 1 GM/VIAL ONE (21:16)
[2021-07-12] MEDS ORDERED: PROMETHAZINE INJ 25 MG/ML AMP ONE (21:16)
[2021-07-12 21:34] LABS: Urine Blood Negative (Negative); Urine Glucose Negative (Negative); Urine Protein Negative (Negative); Urine Specific Gravity 1.015 (1.005-1.030)
--- NOTE | 2021-07-12 21:36 | RAD REPORT ---
EXAM DESCRIPTION: Subha Single View07/12/2021 8:56 pm CLINICAL HISTORY: cough COMPARISON: 2018 FINDINGS: Mild medial right basilar lung opacities may represent atelectasis or infiltrate. Left lung appears clear of acute infiltrate. Heart is mildly enlarged. Central pulmonary arteries prominent probably indicating pulmonary arterial hypertension
[2021-07-12 21:53] LABS: Urine Bacteria <20 /HPF (<20); Urine RBC NONE SEEN /HPF (NONE SEEN)
--- NOTE | 2021-07-13 00:24 | ER ---
Nurse's Notes [facility] Name: Mecca Banuelos Age: 71 yrs Sex: Female : 1950 Arrival Date: 07/12/2021 Time: 19:49 Bed 16 Private MD: Diagnosis: Fever, unspecified;Bandemia Presentation: 07/12 20:00 Chief complaint: EMS states: they were toned out for pt with cough, fever, weakness bb starting today. Coronavirus screen: cough unrelated to allergies, fever, Client presents with at least one sign or symptom that may indicate coronavirus-19. Standard/surgical mask placed on the client. Ebola Screen: No symptoms or risks identified at this time. Initial Sepsis Screen: Does the patient meet any 2 criteria? RR > 20 per min. Temp <36.0*C (96.8*F)) or > 38.3*C (100.9*F). Yes Does the patient have a suspected source of infection? Yes: Productive cough/pneumonia. Risk Assessment: Do you want to hurt yourself or someone else? Patient reports no desire to harm self or others. Onset of symptoms was July 12, 2021. Care prior to arrival: Medication(s) given: Tylenol, 1000 mg, IV initiated. 20 GA, in the right antecubital area, Glucose check: 134. 20:00 Method Of Arrival: [facility] bb 20:00 Acuity: MARICHUY 3 bb Historical: - Allergies: 21:39 No Known Allergies; bb - Home Meds: 21:39 lisinopril-hydrochlorothiazide 20-12.5 mg Oral tab 1 tab once daily [Active]; aspirin bb 81 mg Oral TbEC 1 tab once daily [Active]; sotalol 80 mg Oral tab 2 times per day [Active]; - PMHx: 21:39 Atrial Fib; Hypertensive disorder; bb - Immunization history:: Adult Immunizations up to date, Client reports receiving the Chance \T\ Chance single-dose vaccine. - Social history:: Smoking status: unknown. Screenin:00 Abuse screen: Denies threats or abuse. Nutritional screening: No deficits noted. bb Tuberculosis screening: No symptoms or risk factors identified. Fall Risk None identified. Assessment: 20:00 General: Appears in no apparent distress. obese, Behavior is calm, cooperative. Pain: bb Complains of pain in epigastric area. Neuro: Level of Consciousness is awake, alert, obeys commands, Oriented to person, place, time, situation. Cardiovascular: Heart tones S1 S2 present Capillary refill < 3 seconds Patient's skin is warm and dry. Rhythm is sinus rhythm. Respiratory: Respiratory effort is even, unlabored, Respiratory pattern is tachypnea Breath sounds are clear bilaterally. GI: Abdomen is obese, Abd is soft and non tender X 4 quads. Derm: Skin is pink, warm \T\ dry. Musculoskeletal: Circulation, motion, and sensation intact. 21:20 Reassessment: Patient is alert, oriented x 3, equal unlabored respirations, skin bb warm/dry/pink. pt resting quietly, IV site intact, patent, with fluids infusing, family at bedside, awaiting diagnostic results. 22:23 Reassessment: Patient is alert, oriented x 3, equal unlabored respirations, skin bb warm/dry/pink. pt ambulated with steady gait to the bathroom. 23:11 Reassessment: pt to CT scan via stretcher on O2 accompanied by fiber optic technician. bb 23:18 Reassessment: pt returned from CT and ambulated with steady gait to bathroom. bb 07/13 00:18 Reassessment: Patient is alert, oriented x 3, equal unlabored respirations, skin bb warm/dry/pink. pt awaiting diagnostic results IV site intact with no erythema or edema noted. 01:01 Reassessment: Panfilo RICHEY at bedside for discussion of findings and recommendations bb pt to be admitted for further evaluation and treatment. Pt and family verbalized understanding of and agree to plan of care. Vital Signs: 07/12 19:51 BP 110 / 58; Pulse 92; Resp 22 S; Temp 98.2(O); Pulse Ox 94% on 2 lpm NC; Weight 81.65 bb kg (R); Height 5 ft. 3 in. (160.02 cm) (R); 20:45 BP 112 / 54; Pulse 84; Resp 20; Pulse Ox 93% on 3 lpm NC; bb 21:49 BP 107 / 61; Pulse 87; Resp 22 S; Temp 98.5(O); Pulse Ox 93% on 3 lpm NC; bb 07/13 00:18 BP 97 / 60; Pulse 73; Resp 18 S; Temp 98.2(O); Pulse Ox 96% on 3 lpm NC; bb 01:03 BP 101 / 64; Pulse 75; Resp 16 S; Pulse Ox 94% on 3 lpm NC; bb 07/12 19:51 Body Mass Index 31.89 (81.65 kg, 160.02 cm) bb ED Course: 07/12 19:49 Patient arrived in ED. lp1 19:50 Satnam Cowan MD is Attending Physician. 7 19:51 Sabrina Pedraza, RN is Primary Nurse. bb 20:00 Arm band placed on Patient placed in an exam room, on a stretcher, on pvc monitor, bb on pulse oximetry. 20:00 Patient has correct armband on for positive identification. Placed in gown. Bed in low bb position. Call light in reach. Side rails up X 1. Adult w/ patient. pvc monitor on. Pulse ox on. NIBP on. Warm blanket given. 20:30 Initial lab(s) drawn, by me, sent to lab. First set of blood cultures drawn by me, bb Second set of blood cultures drawn by me. Inserted saline lock: 20 gauge in left antecubital area, using aseptic technique. 20:37 Notified ED physician of a critical lab result(s). Lactate 2.7. lp1 20:56 Chest Single View XRAY In Process Unspecified. EDMS 20:59 Notified ED physician of a critical lab result(s). Bands 12. lp1 21:30 Urine collected: clean catch specimen, clear. bb 21:39 Triage completed. bb 22:48 CBC with Diff Sent. bb 22:48 Blood Culture Adult (2) Sent. bb 22:48 Basic Metabolic Panel Sent. bb 22:48 Amylase, Serum Sent. bb 23:22 CT Chest For PE Angio In Process Unspecified. EDMS 23:22 CT Abd/Pelvis - IV Contrast Only In Process Unspecified. EDMS 07/13 00:21 Lou Manzano MD is Hospitalizing Provider. 7 00:22 No provider procedures requiring assistance completed. bb 01:02 Patient admitted, IV remains in place. bb 09:37 Primary Nurse role handed off by Sabrina Pedraza, RN eb 09:41 Jonna Ross, EDSON is Primary Nurse. 6 Administered Medications: 07/12 19:59 CANCELLED (wrong medicationn): Zofran (Ondansetron) 4 mg IVP once; over 2 minutes [facility] 20:05 Drug: NS 0.9% (30 ml/kg) 30 ml/kg Route: IV; Rate: bolus; Site: right antecubital; bb 23:40 Follow up: IV Status: Completed infusion; IV Intake: 2000ml bb 21:26 Drug: Phenergan (promethazine) 12.5 mg Route: IVP; Site: left antecubital; 21:50 Follow up: Response: No adverse reaction bb 21:26 Drug: Cefepime 1 grams Route: IVPB; Rate: 200 ml/hr; Infused Over: 30 mins; Site: left bb antecubital; 22:00 Follow up: IV Status: Completed infusion; IV Intake: 100ml bb Intake: 22:00 IV: 100ml; Total: 100ml. bb 23:40 IV: 2000ml; Total: 2100ml. Outcome: 07/13 00:22 Decision to Hospitalize by Provider. [facility] 01:02 Condition: stable bb 01:02 Instructed on the need for admit. 01:13 Admitted to ER Hold. Please see [facility] for further documentation. 08:50 Admitted to Med/surg accompanied by tech, via wheelchair, Report called to scooter [facility] 08:50 Condition: stable 09:42 Patient left the ED. [facility] Signatures: Dispatcher [employer] EDSabrina Roy RN RN bb Pena, Laura, RN RN lp1 Katelyn Alcantar Maurice, MD MD [facility] Jonna Ross RN RN 6
--- NOTE | 2021-07-13 00:24 | EDPHYS ---
Physician Documentation [facility] Name: Mecca Banuelos Age: 71 yrs Sex: Female : 1950 Arrival Date: 07/12/2021 Time: 19:49 Bed 16 Private MD: ED Physician Satnam Cowan HPI: 07/12 19:54 This 71 yrs old Female presents to ER via Unassigned with complaints of Fever. mh7 Cough.. 19:54 The patient reports fever, that was measured at 103 degrees Fahrenheit. Onset: The mh7 symptoms/episode began/occurred today. Modifying factors: there are no obvious modifying factors. Associated signs and symptoms: Pertinent positives: chills, cough, that is dry, myalgias, nausea, shortness of breath, vomiting, Body aches, Pertinent negatives: abdominal pain, altered mental status, arthralgias, backache, chest pain, diarrhea, earache, headache, hemoptysis, night sweats, runny nose, sinus congestion, sinus drainage, skin rash, sore throat, swelling. Severity of symptoms: At their worst the symptoms were moderate today, in the emergency department the symptoms have improved moderately. Historical: - Allergies: 21:39 No Known Allergies; bb - Home Meds: 21:39 lisinopril-hydrochlorothiazide 20-12.5 mg Oral tab 1 tab once daily [Active]; aspirin bb 81 mg Oral TbEC 1 tab once daily [Active]; sotalol 80 mg Oral tab 2 times per day [Active]; - PMHx: 21:39 Atrial Fib; Hypertensive disorder; bb - Immunization history:: Adult Immunizations up to date, Client reports receiving the Chance \\T\\ Chance single-dose vaccine. - Social history:: Smoking status: unknown. ROS: 19:54 Eyes: Negative for injury, pain, redness, and discharge, ENT: Negative for injury, mh7 pain, and discharge, Neck: Negative for injury, pain, and swelling, Cardiovascular: Negative for chest pain, palpitations, and edema. 19:54 Back: Negative for injury and pain, : Negative for injury, bleeding, discharge, and swelling, MS/Extremity: Negative for injury and deformity, Skin: Negative for injury, rash, and discoloration, Neuro: Negative for headache, weakness, numbness, tingling, and seizure, Psych: Negative for depression, anxiety, suicide ideation, homicidal ideation, and hallucinations, Allergy/Immunology: Negative for hives, rash, and allergies, Endocrine: Negative for neck swelling, polydipsia, polyuria, polyphagia, and marked weight changes, Hematologic/Lymphatic: Negative for swollen nodes, abnormal bleeding, and unusual bruising. 19:54 Abdomen/GI: Negative for abdominal pain, diarrhea, constipation, abdominal cramps, abdominal distension, anorexia, dysphagia, hematemesis, black/tarry stool, rectal pain, rectal bleeding, bowel incontinence, flatulence. Exam: 19:54 Constitutional: This is a well developed, well nourished patient who is awake, alert, mh7 and in no acute distress. Head/Face: Normocephalic, atraumatic. Eyes: Pupils equal round and reactive to light, extra-ocular motions intact. Lids and lashes normal. Conjunctiva and sclera are non-icteric and not injected. Cornea within normal limits. Periorbital areas with no swelling, redness, or edema. Neck: Trachea midline, no thyromegaly or masses palpated, and no cervical lymphadenopathy. Supple, full range of motion without nuchal rigidity, or vertebral point tenderness. No Meningismus. Chest/axilla: Normal chest wall appearance and motion. Nontender with no deformity. No lesions are appreciated. Cardiovascular: Regular rate and rhythm with a normal S1 and S2. No gallops, murmurs, or rubs. Normal PMI, no JVD. No pulse deficits. 19:54 Abdomen/GI: Soft, non-tender, with normal bowel sounds. No distension or tympany. No guarding or rebound. No evidence of tenderness throughout. Back: No spinal tenderness. No costovertebral tenderness. Full range of motion. Skin: Warm, dry with normal turgor. Normal color with no rashes, no lesions, and no evidence of cellulitis. MS/ Extremity: Pulses equal, no cyanosis. Neurovascular intact. Full, normal range of motion. Neuro: Awake and alert, GCS 15, oriented to person, place, time, and situation. Cranial nerves II-XII grossly intact. Motor strength 5/5 in all extremities. Sensory grossly intact. Cerebellar exam normal. Normal gait. Psych: Awake, alert, with orientation to person, place and time. Behavior, mood, and affect are within normal limits. 19:54 Respiratory: the patient does not display signs of respiratory distress, Respirations: normal, Breath sounds: rhonchi, that are mild, are scattered, Respiratory rate: 20 Vital Signs: 19:51 BP 110 / 58; Pulse 92; Resp 22 S; Temp 98.2(O); Pulse Ox 94% on 2 lpm NC; Weight 81.65 bb kg (R); Height 5 ft. 3 in. (160.02 cm) (R); 20:45 BP 112 / 54; Pulse 84; Resp 20; Pulse Ox 93% on 3 lpm NC; bb 21:49 BP 107 / 61; Pulse 87; Resp 22 S; Temp 98.5(O); Pulse Ox 93% on 3 lpm NC; bb 07/13 00:18 BP 97 / 60; Pulse 73; Resp 18 S; Temp 98.2(O); Pulse Ox 96% on 3 lpm NC; bb 01:03 BP 101 / 64; Pulse 75; Resp 16 S; Pulse Ox 94% on 3 lpm NC; bb 07/12 19:51 Body Mass Index 31.89 (81.65 kg, 160.02 cm) bb MDM: 00:20 Differential diagnosis: viral Infection, bacterial infection, URI, bronchitis, mh7 pneumonia UTI, gastroenteritis. Data reviewed: vital signs, nurses notes, EMS record, lab test result(s), cardiac enzymes, CBC, electrolytes, urinalysis, EKG, radiologic studies, CT scan, plain films. Data interpreted: Pulse oximetry: on room air is 95 %. Interpretation: normal. Counseling: I had a detailed discussion with the patient and/or guardian regarding: the historical points, exam findings, and any diagnostic results supporting the discharge/admit diagnosis, lab results, radiology results, the need for further work-up and treatment in the hospital. Response to treatment: the patient's symptoms have markedly improved after treatment. 00:22 [facility]. [facility] 07/12 19:51 Order name: Amylase, Serum [facility] 07/12 19:51 Order name: Basic Metabolic Panel [facility] 07/12 19:51 Order name: Blood Culture Adult (2) [facility] 07/12 19:51 Order name: CBC with Diff [facility] 07/12 19:51 Order name: CPK; Complete Time: 21:00 [facility] 07/12 19:51 Order name: Ckmb; Complete Time: 21:00 [facility] 07/12 19:51 Order name: LFT's; Complete Time: 21:00 [facility] 07/12 19:51 Order name: Lactate; Complete Time: 21:00 [facility] 07/12 19:51 Order name: Lipase; Complete Time: 21:00 [facility] 07/12 19:51 Order name: Procalcitonin; Complete Time: 21:57 [facility] 07/12 19:51 Order name: Protime (+inr); Complete Time: 21:00 [facility] 07/12 19:51 Order name: Ptt, Activated; Complete Time: 21:00 [facility] 07/12 19:51 Order name: Troponin (emerg Dept Use Only); Complete Time: 21:00 [facility] 07/12 19:51 Order name: Urine Microscopic Only; Complete Time: 21:57 [facility] 07/12 19:51 Order name: Chest Single View XRAY; Complete Time: 21:57 [facility] 07/12 19:51 Order name: Amylase; Complete Time: 21:00 [facility] 07/12 19:51 Order name: Basic Metabolic Panel; Complete Time: 21:00 [facility] 07/12 19:51 Order name: Blood Culture [facility] 07/12 19:51 Order name: CBC with Automated Diff; Complete Time: 21:00 [facility] 07/12 19:52 Order name: COVID-19/FLU A+B (Document "Date of Onset" if Symptomatic); Complete Time: [facility] 22:45 07/12 19:53 Order name: PROBNP [facility] 07/12 19:59 Order name: NT PRO-BNP; Complete Time: 21:00 [facility] 07/12 20:55 Order name: Manual Differential; Complete Time: 21:00 [facility] 07/12 21:34 Order name: Urine Dipstick-Ancillary; Complete Time: 21:57 [facility] 07/12 22:45 Order name: CT Chest For PE Angio [facility] 07/12 22:45 Order name: CT Abd/Pelvis - IV Contrast Only [facility] 07/12 22:59 Order name: Lactate Sepsis 2 HR Follow-up; Complete Time: 22:59 [facility] 12 03:51 Order name: Comprehensive Metabolic Panel [facility] 07/13 03:56 Order name: CBC with Automated Diff [facility] 07/12 19:51 Order name: Accucheck; Complete Time: 21:50 [facility] 07/12 19:51 Order name: Cardiac monitoring; Complete Time: 20:23 [facility] 07/12 19:51 Order name: EKG - Nurse/Tech; Complete Time: 20:23 [facility] 07/12 19:51 Order name: IV Saline Lock - Large Bore; Complete Time: 20:23 [facility] 07/12 19:51 Order name: Labs collected and sent; Complete Time: 20:23 [facility] 07/12 19:51 Order name: O2 Per Protocol; Complete Time: 20:23 [facility] 07/12 19:51 Order name: O2 Sat Monitoring; Complete Time: 20:23 [facility] 07/12 19:51 Order name: Urine Dipstick-Ancillary (obtain specimen); Complete Time: 21:50 [facility] Administered Medications: 07/12 19:59 CANCELLED (wrong medicationn): Zofran (Ondansetron) 4 mg IVP once; over 2 minutes [facility] 20:05 Drug: NS 0.9% (30 ml/kg) 30 ml/kg Route: IV; Rate: bolus; Site: right antecubital; bb 23:40 Follow up: IV Status: Completed infusion; IV Intake: 2000ml 21:26 Drug: Phenergan (promethazine) 12.5 mg Route: IVP; Site: left antecubital; bb 21:50 Follow up: Response: No adverse reaction 21:26 Drug: Cefepime 1 grams Route: IVPB; Rate: 200 ml/hr; Infused Over: 30 mins; Site: left bb antecubital; 22:00 Follow up: IV Status: Completed infusion; IV Intake: 100ml bb Disposition Summary: 07/13/21 00:22 Hospitalization Ordered Hospitalization Status: Inpatient Admission [facility] Provider: Lou Manzano Condition: Stable [facility] Problem: new [facility] Symptoms: have improved [facility] Bed/Room Type: Standard [facility] Location: Telemetry/MedSurg (Inpatient)(07/13/21 07:51) dw Room Assignment: [facility](07/13/21 07:51) dw Diagnosis - Fever, unspecified [facility] - Bandemia [facility] Forms: - Medication Reconciliation Form [facility] - SBAR form [facility] Signatures: Dispatcher [facility] Janett Hamilton RN RN dw Sabrina Pedraza RN RN bb Jessica Ayoub RN RN eb1 Satnam Cowan MD MD 7 Corrections: (The following items were deleted from the chart) 19:53 NT PRO-BNP ordered. [facility] 19:57 Zofran (Ondansetron) 4 mg IVP once; over 2 minutes ordered. [place] [address] 07/13 01:00 00:22 Telemetry/MedSurg (Inpatient) [place] [id number] 01:00 00:22 [place] [address] 07:51 01:00 [facility] ER HOLD eb1 dw 07:51 01:00 ERHOLD- eb1 dw
--- NOTE | 2021-07-13 01:20 | P.HP ---
Certification for Inpatient Patient admitted to: Inpatient With expected LOS: <2 Midnights Patient will require the following post-hospital care: None Practitioner: I am a practitioner with admitting privileges, knowledge of patient current condition, hospital course, and medical plan of care. Services: Services provided to patient in accordance with Admission requirements found in Title 42 Section 412.3 of the Code of Federal Regulations <Panfilo Fletcher Ziggy - Last Filed: 07/13/21 01:21> Patient History Date of Service: 07/13/21 Reason for admission: fever, bandemia History of Present Illness: Mr. Banuelos is a 71 yo M with afib, HTN, history of carcinoid tumors who presents with one day of fever and chills beginning today. Upon arrival, EMS reports fever of 103 and they gave her 1000 mg of IV tylenol. Since arrival to ED, she has been afebrile. She is from out of town, visiting her daughter before her appointment at [facility] in 2 weeks for follow-up of two benign tumors seen on CT scan here today. There are no plans to do surgery at this time, just follow up with imaging every 6 months. WBC 12.3 K 3.2 BUN 19 GFR 47 Dbili 0.4 AST 39 Lactate 2.7 BNP [address] CAP: No evidence of pulmonary embolism, findings of pulmonary artery hypertension, no pulmonary consolidation or pleural effusions, prior hepatic lobectomy, moderate left colonic diverticulosis without diverticulitis. Small rounded focus on central left hepatic lobe, prominent heterogenous attenuation of CBD suggestive of prominent wall thickening, mild intrahepatic dilation. - Past Medical/Surgical History Diabetic: No -: htn -: afib -: liver tumors -: colon tumors -: pancreatic tumors -: heart sx- 2 weeks ago -: gallbladder sx -: cardiac ablation -: hepatic lobectomy -: colonic resection -: cris - Family History Mother -: Heart disease, Hypertension Notes: pneumonia - Social History Smoking Status: Former smoker Alcohol use: No CD- Drugs: No Caffeine use: Yes Place of Residence: Home <ChancePanfilo - Last Filed: 07/13/21 01:21> Date of Service: 07/13/21 <Lou Manzano - Last Filed: 07/13/21 16:05> Allergies No Known Allergies Allergy (Verified 02/19/19 15:08) Home Medications: Aspirin [Aspirin EC 81 MG] 81 mg PO DAILY 07/13/21 Lisinopril/Hydrochlorothiazide [Lisinopril-Hctz 20-12.5 mg Tab] 1 tab PO DAILY 07/13/21 Sotalol HCl [Sotalol AF] 80 mg PO BID 07/13/21 Review of Systems 10-point ROS is otherwise unremarkable General: Fever, Chills, Sweats, Weakness, Malaise Eyes: Unremarkable ENT: Unremarkable Respiratory: Cough, Shortness of Breath Cardiovascular: Unremarkable Gastrointestinal: Nausea Genitourinary: Unremarkable Musculoskeletal: Back Pain Integumentary: Unremarkable Neurological: Unremarkable Lymphatics: Unremarkable <Panfilo Fletcher - Last Filed: 07/13/21 01:21> Physical Examination - Physical Exam General: Alert, In no apparent distress HEENT: Atraumatic, PERRLA, Mucous membr. moist/pink, EOMI, Sclerae nonicteric Neck: Supple, 2+ carotid pulse no bruit, No LAD, Without JVD or thyroid abnormality Respiratory: Clear to auscultation bilaterally, Normal air movement Cardiovascular: Regular rate/rhythm, Normal S1 S2 Gastrointestinal: Normal bowel sounds, No tenderness Musculoskeletal: No tenderness Integumentary: No rashes Neurological: Normal speech, Normal strength at 5/5 x4 extr, Normal tone, Normal affect Lymphatics: No axilla or inguinal lymphadenopathy - Studies Laboratory Data (last 24 hrs) 07/12/21 20:00: PT 12.7 H, INR 1.10, APTT 26.5 07/12/21 20:00: WBC 12.30 H, Hgb 13.3, Hct 40.8, Plt Count 182 07/12/21 20:00: Sodium 142, Potassium 3.2 L, BUN 19 H, Creatinine 1.14, Glucose 111 H, Total Bilirubin 1.0, AST 39 H, ALT 36, Alkaline Phosphatase 60, Amylase 44, Lipase 154 <Panfilo Fletcher - Last Filed: 07/13/21 01:21> - Studies Laboratory Data (last 24 hrs) 07/12/21 20:00: PT 12.7 H, INR 1.10, APTT 26.5 07/12/21 20:00: WBC 12.30 H, Hgb 13.3, Hct 40.8, Plt Count 182 07/12/21 20:00: Sodium 142, Potassium 3.2 L, BUN 19 H, Creatinine 1.14, Glucose 111 H, Total Bilirubin 1.0, AST 39 H, ALT 36, Alkaline Phosphatase 60, Amylase 44, Lipase 154 <ManzanoAlysha shoemakeradama Jessica - Last Filed: 07/13/21 16:05> Assessment and Plan - Problems (Diagnosis) (1) Fever Current Visit: Yes Status: Acute Qualifiers: Fever type: unspecified Qualified Code(s): R50.9 - Fever, unspecified (2) Bandemia Current Visit: Yes Status: Acute (3) Afib Current Visit: Yes Status: Chronic Qualifiers: Atrial fibrillation type: unspecified Qualified Code(s): I48.91 - Unspecified atrial fibrillation (4) HTN (hypertension) Current Visit: Yes Status: Chronic Qualifiers: Hypertension type: primary hypertension Qualified Code(s): I10 - Essential (primary) hypertension (5) Carcinoid tumor Current Visit: Yes Status: Chronic Qualifiers: Carcinoid tumor malignancy status: benign Carcinoid tumor location: other site Qualified Code(s): D3A.098 - Benign carcinoid tumors of other sites - Plan blood cultures pending monitor for fever, tylenol PRN for T>100.4 continue IV cefepime continue IVF hydration reconcile and continue home medications K replace as needed Discharge Plan: Home Plan to discharge in: 24 Hours - Advance Directives Does patient have a Living Will: No Does patient have a Durable POA for Healthcare: No - Code Status/Comfort Care Code Status Assessed: Yes (full code ) Critical Care: No Time Spent Managing Pts Care (In Minutes): 70 <Panfilo Fletcher - Last Filed: 07/13/21 01:21> - Problems (Diagnosis) (1) UTI (urinary tract infection) Current Visit: Yes Status: Acute Qualifiers: Urinary tract infection type: acute cystitis Hematuria presence: without h ematuria Qualified Code(s): N30.00 - Acute cystitis without hematuria (2) Bandemia Current Visit: Yes Status: Acute (3) Fever Current Visit: Yes Status: Acute Qualifiers: Fever type: unspecified Qualified Code(s): R50.9 - Fever, unspecified (4) Afib Current Visit: Yes Status: Chronic Qualifiers: Atrial fibrillation type: unspecified Qualified Code(s): I48.91 - Unspecified atrial fibrillation (5) HTN (hypertension) Current Visit: Yes Status: Chronic Qualifiers: Hypertension type: primary hypertension Qualified Code(s): I10 - Essential (primary) hypertension (6) Liver mass Current Visit: Yes Status: Acute (7) Pulmonary hypertension Current Visit: Yes Status: Acute <Lou Manzano - Last Filed: 07/13/21 16:05> Date of Service: 07/13/21 Subjective Agree with HPI as mentioned above Review of Systems 10-point ROS is otherwise unremarkable Physical Examination - Vital Signs Reviewed - Physical Exam General: Alert, In no apparent distress, Oriented x3 Respiratory: Clear to auscultation bilaterally, Normal air movement Cardiovascular: Regular rate/rhythm, Normal S1 S2, No murmurs Gastrointestinal: Normal bowel sounds, Soft and benign, Non-distended, No tenderness Musculoskeletal: No clubbing, No swelling, No tenderness Neurological: Normal speech, Normal tone, Normal affect Lymphatics: No axilla or inguinal lymphadenopathy Assessment & Plan - Problems (Diagnosis) (1) UTI (urinary tract infection) Current Visit: Yes Status: Acute Qualifiers: Urinary tract infection type: acute cystitis Hematuria presence: without hematuria Qualified Code(s): N30.00 - Acute cystitis without hematuria (2) Bandemia Current Visit: Yes Status: Acute (3) Fever Current Visit: Yes Status: Acute Qualifiers: Fever type: unspecified Qualified Code(s): R50.9 - Fever, unspecified (4) Afib Current Visit: Yes Status: Chronic Qualifiers: Atrial fibrillation type: unspecified Qualified Code(s): I48.91 - Unspecified atrial fibrillation (5) HTN (hypertension) Current Visit: Yes Status: Chronic Qualifiers: Hypertension type: primary hypertension Qualified Code(s): I10 - Essential (primary) hypertension (6) Liver mass Current Visit: Yes Status: Acute (7) Pulmonary hypertension Current Visit: Yes Status: Acute - Plan 1. Continue with antibiotic therapy 2. IV hydration 3. Monitor labs closely 4. MRI and check alpha fetoprotein 5. Continue with cardiac meds 6. GI and DVT prophylaxis Discharge Plan: Home Plan to discharge in: Greater than 2 days - Advance Directives Does patient have a Living Will: No Does patient have a Durable POA for Healthcare: No - Code Status/Comfort Care Code Status Assessed: Yes Code Status: Full Code Critical Care: No Time Spent Managing PTS Care (In Minutes): 35 <Lou Manzano - Last Filed: 07/13/21 16:05>
[2021-07-13 01:34] VITALS: BMI 31.8
[2021-07-13 01:38] VITALS: O2SAT 98
[2021-07-13] MEDS ORDERED: ACETAMINOPHEN 500 MG TAB PO PRN (01:38)
[2021-07-13] MEDS ORDERED: ONDANSETRON 4 MG/2 ML VIAL IV PRN (01:38)
[2021-07-13] MEDS: NA CHLORIDE 0.9% 1,000 ML IV SCH ×3 (01:40→21:22)
[2021-07-13] MEDS ORDERED: POTASSIUM CL SA 10 MEQ TAB PO ONE ×2 (01:46→01:49)
[2021-07-13 03:48] LABS: Absolute Lymphocytes (CBC) 0.7 K/uL (0.7-4.9); Basophils % 0.3 % (0-1.3); Hematocrit 39.8 % (36.0-45.0); Lymphocytes % 5.2 % (15.3-44.8); MPV 9.1 fL (7.6-11.3); RBC Red Blood Cell Count 4.24 M/uL (3.86-4.86)
[2021-07-13 03:51] LABS: Potassium 3.6 mmol/L (3.5-5.1)
[2021-07-13] MEDS ORDERED: CEFEPIME 1 GM/VIAL IV SCH (09:00)
[2021-07-13] MEDS: ENOXAPARIN 40 MG/0.4 ML SQ SCH (09:40)
[2021-07-13] MEDS: CEFEPIME 1 GM in NA CHLORIDE 0.9% 100 ML IV SCH ×2 (11:19→21:21)
[2021-07-13] MEDS ORDERED: INFLUENZA VACCINE (for 6+ mo) 0.5 ML DOSE IMVAC ONE (12:00)
--- NOTE | 2021-07-13 13:31 | RAD REPORT ---
EXAM DESCRIPTION: CT - Abdomen Pelvis W Contrast - 07/13/2021 6:54 am CLINICAL HISTORY: Dyspnea. Fever;Nausea / vomiting. COMPARISON: CT of the abdomen and pelvis without contrast from February 20, 2019. TECHNIQUE: CTA of the chest, and CT of the abdomen and pelvis was performed following intravenous ad ministration of iodinated contrast. Arterial phase images through the abdomen, and portal venous phas e images to the abdomen and pelvis were obtained. Axial soft tissue and lung window, and coronal and sagittal soft tissue window reconstructions were created and sent to PACS. 3D postprocessing was performed on an independent workstation, with images sent to PACS for subsequen t review. This exam was performed according to our departmental dose-optimization program, which includes autom ated exposure control, adjustment of the mA and/or kV according to patient size and/or use of iterati ve reconstruction technique. FINDINGS: Vascular: The pulmonary arteries are well-opacified to the segmental level. No CT evidence of acute pulmonary thromboembolism. No evidence of aortic aneurysm or dissection. Prominent central pulmonary arteries, with the main pulmonary trunk measuring 4.7 cm in diameter. Mild calcific atheros clerosis. Lungs and pleura: No pulmonary consolidation. No pleural effusion. No pneumothorax. Mediastinum and neck: No mediastinal lymphadenopathy by CT size criteria. Unremarkable appearance of the thyroid gland. Cardiac: No cardiomegaly or pericardial effusion. Hepatobiliary: Prior right hepatic lobectomy. No concerning hepatic lesion identified. The portal vei ns are patent. The gallbladder is surgically absent. Trace pneumobilia. Prominent common bile duct wi th a heterogeneous center, possibly due to prominent wall thickening, measuring up to 2.[address], increased from prior. Trace pneumobilia. Mild central intrahepatic biliary ductal dilatation. Po ssible lesion at the confluence of bile ducts in the left hepatic lobe just superior to the confluenc e of the portal veins, measuring 1.6 x 2 cm (axial series 501 image 19, coronal series 502 image 28). Pancreas: Unremarkable. Spleen: Unremarkable. Gastrointestinal: No evidence of bowel obstruction or perienteric inflammation. The appendix is patricia l. And moderate left colonic diverticulosis. Adrenals: No abnormality identified in either adrenal gland. Renal: Tiny superior right hepatic lobe hypodensity, likely a cyst. No concerning parenchymal abnorma lity in either kidney. No hydronephrosis or urolithiasis. Bladder/Reproductive: Unremarkable appearance of the urinary bladder by CT technique. Unremarkable CT appearance of the uterus and ovaries. Vascular/Lymphatics: No lymphadenopathy identified by CT size criteria. Moderate calcific atheroscler osis. Abdominal aorta is normal in caliber. Musculoskeletal: No concerning osseous lesion identified. Fluid / peritoneum: No significant free fluid. No free intraperitoneal air identified. IMPRESSION: 1. No CTA evidence of acute pulmonary thromboembolism. 2. Findings suggestive of pulmonary arterial hypertension. 3. No pulmonary consolidation or pleural effusions. 4. Prior right hepatic lobectomy. 5. Small rounded focus in the central left hepatic lobe. Prominent, heterogeneous attenuation commo n bile duct suggestive of prominent wall thickening. Mild intrahepatic dilation. Findings are highly concerning for malignancy. Infection is within the differential. Recommend correlation with contrast enhanced MRI with MRCP when clinically appropriate. 6. Moderate left colonic diverticulosis. No evidence of acute diverticulitis. Electronically signed by: Lilibeth Owens MD 07/13/2021 12:01 AM MANUFACTURING ENGINEERING PROFESSOR Due to temporary technical issues with the PACS/Fluency reporting system, reports are being signed by the in house radiologists without review as a courtesy to insure prompt reporting. The interpreting radiologist is fully responsible for the content of the report.
--- NOTE | 2021-07-13 16:02 | P.PN ---
Subjective Date of Service: 07/13/21 Patient is feeling much better. Still feeling weak but no fevers today. Feels like her strength is improving. Review of Systems 10-point ROS is otherwise unremarkable Physical Examination - Vital Signs Temperature: 97.8 F Blood Pressure: 92/51 Pulse: 63 Respirations: 16 Pulse Ox (%): 94 - Physical Exam General: Alert, In no apparent distress, Oriented x3 Respiratory: Clear to auscultation bilaterally, Normal air movement Cardiovascular: Regular rate/rhythm, Normal S1 S2, No murmurs Gastrointestinal: Normal bowel sounds, Soft and benign, Non-distended, No tenderness Musculoskeletal: No clubbing, No swelling, No tenderness Integumentary: No rashes Neurological: Normal speech, Normal tone, Normal affect Lymphatics: No axilla or inguinal lymphadenopathy - Studies Laboratory Data (last 24 hrs) 07/12/21 20:00: PT 12.7 H, INR 1.10, APTT 26.5 07/12/21 20:00: WBC 12.30 H, Hgb 13.3, Hct 40.8, Plt Count 182 07/12/21 20:00: Sodium 142, Potassium 3.2 L, BUN 19 H, Creatinine 1.14, Glucose 111 H, Total Bilirubin 1.0, AST 39 H, ALT 36, Alkaline Phosphatase 60, Amylase 44, Lipase 154 Medications List Reviewed: Yes Assessment & Plan - Problems (Diagnosis) (1) UTI (urinary tract infection) Current Visit: Yes Status: Acute Qualifiers: Urinary tract infection type: acute cystitis Hematuria presence: without hematuria Qualified Code(s): N30.00 - Acute cystitis without hematuria (2) Bandemia Current Visit: Yes Status: Acute (3) Fever Current Visit: Yes Status: Acute Qualifiers: Fever type: unspecified Qualified Code(s): R50.9 - Fever, unspecified (4) Afib Current Visit: Yes Status: Chronic Qualifiers: Atrial fibrillation type: unspecified Qualified Code(s): I48.91 - Unspecified atrial fibrillation (5) HTN (hypertension) Current Visit: Yes Status: Chronic Qualifiers: Hypertension type: primary hypertension Qualified Code(s): I10 - Essential (primary) hypertension (6) Liver mass Current Visit: Yes Status: Acute (7) Pulmonary hypertension Current Visit: Yes Status: Acute - Plan Plan: 1. Continue with antibiotic therapy 2. IV hydration 3. Monitor labs closely 4. MRI and check alpha fetoprotein 5. Continue with cardiac meds 6. GI and DVT prophylaxis Discharge Plan: Home Plan to discharge in: Greater than 2 days - Advance Directives Does patient have a Living Will: No Does patient have a Durable POA for Healthcare: No - Code Status/Comfort Care Code Status Assessed: Yes Code Status: Full Code Critical Care: No Time Spent Managing PTS Care (In Minutes): 35
[2021-07-13] MEDS: SOTALOL HCL 80 MG TAB PO SCH (21:00)
[2021-07-14] MEDS: NA CHLORIDE 0.9% 1,000 ML IV SCH (01:43)
[2021-07-14 06:10] LABS: Absolute Lymphocytes (CBC) 1.6 K/uL (0.7-4.9); Basophils % 0.4 % (0-1.3); Hematocrit 37.2 % (36.0-45.0); Lymphocytes % 20.1 % (15.3-44.8); MPV 9.6 fL (7.6-11.3); RBC Red Blood Cell Count 3.93 M/uL (3.86-4.86)
[2021-07-14 06:26] LABS: Albumin 2.8 g/dL (3.4-5.0); Bilirubin Total 0.7 mg/dL (0.2-1.0); Phosphorus 2.8 mg/dL (2.5-4.9); Potassium 3.7 mmol/L (3.5-5.1); Protein, Total 5.5 g/dL (6.4-8.2); Thyroid Stimulating Hormone 1.55 uIU/mL (0.360-3.740)
[2021-07-14] MEDS: ENOXAPARIN 40 MG/0.4 ML SQ SCH (08:40)
[2021-07-14] MEDS: SOTALOL HCL 80 MG TAB PO SCH (08:40)
[2021-07-14] MEDS: CEFEPIME 1 GM in NA CHLORIDE 0.9% 100 ML IV SCH (08:55)
[2021-07-14] MEDS ORDERED: ASPIRIN EC 81 MG TAB PO SCH (09:00)
--- NOTE | 2021-07-14 12:04 | RAD REPORT ---
EXAM DESCRIPTION: MRI - Cholangiogram - 07/14/2021 11:49 am CLINICAL HISTORY: evaluate lesion to the Liver/Biliary duct Abdominal pain. COMPARISON: Abdomen Pelvis W Contrast dated 07/12/2021 FINDINGS: Three-dimensional MRCP was performed using maximum intensity projection reconstruction on the same work station. There is moderate to significant dilatation of the into intrahepatic biliary tree within the left lob e of the liver. The majority of the right lobe liver appears surgically absent there arm multiple dano ling defects seen within the dilated left intrahepatic biliary tree radicles the largest of which carlos manuel sures almost 2 centimeters. Several additional smaller similar rounded filling defects are also prese nt. The gallbladder appears absent. Limited T2 sequences through the abdomen demonstrates no bulky adenopathy, significant free fluid or abscess. IMPRESSION: [id number] dilatation of the intrahepatic biliary tree of the left lobe liver. M ultiple filling defects within these dilated biliary radicles probably represent intrahepatic stones. Although malignancy is not ruled out and is felt to be less likely.
--- NOTE | 2021-07-14 12:36 | RAD REPORT ---
EXAM DESCRIPTION: MRI - Abdomen WWo Cont - 07/14/2021 12:13 pm CLINICAL HISTORY: evaluate lesion to the Liver/Biliary duct Abdominal pain COMPARISON: Cholangiogram dated 07/14/2021; Abdomen Pelvis Wo Contrast dated 02/20/2019 FINDINGS: Postsurgical changes are seen with absence of the right lobe of the liver. The left lobe of the liver demonstrates moderate intrahepatic biliary tree dilatation. Filling defect is seen within the biliary tree which may represent intrahepatic stones or mass. The spleen, pancreas, adrenal glands and kidneys are within normal limits. No bulky lymphadenopathy i s seen in the abdomen. No free fluid collections evident. No pathologic post-contrast enhancement is evident. IMPRESSION: There is moderate intrahepatic biliary dilatation dilatation seen involving the left lob e liver. Filling defects are seen within the dilated biliary system suggesting intrahepatic stones or masses.
--- NOTE | 2021-07-14 15:19 | P.DS ---
Admission Date: 07/13/21 Discharge Date: 07/14/21 Primary Care Provider: unknown; [facility] Disposition: ROUTINE DISCHARGE Discharge Condition: GOOD Reason for Admission: fever, bandemia Consultations: none Procedures: COVID: Negative Influenza: Negative CT Chest/Abdomen: COMPARISON: CT of the abdomen and pelvis without contrast from February 20, 2019. TECHNIQUE: CTA of the chest, and CT of the abdomen and pelvis was performed following intravenous administration of iodinated contrast. Arterial phase images through the abdomen, and portal venous phase images to the abdomen and pelvis were obtained. Axial soft tissue and lung window, and coronal and sagittal soft tissue window reconstructions were created and sent to PACS. 3D postprocessing was performed on an independent workstation, with images sent to PACS for subsequent review. This exam was performed according to our departmental dose-optimization program, which includes automated exposure control, adjustment of the mA and/or kV according to patient size and/or use of iterative reconstruction technique. FINDINGS: Vascular: The pulmonary arteries are well-opacified to the segmental level. No CT evidence of acute pulmonary thromboembolism. No evidence of aortic aneurysm or dissection. Prominent central pulmonary arteries, with the main pulmonary trunk measuring 4.7 cm in diameter. Mild calcific atherosclerosis. Lungs and pleura: No pulmonary consolidation. No pleural effusion. No pneumothorax. Mediastinum and neck: No mediastinal lymphadenopathy by CT size criteria. Unremarkable appearance of the thyroid gland. Cardiac: No cardiomegaly or pericardial effusion. Hepatobiliary: Prior right hepatic lobectomy. No concerning hepatic lesion identified. The portal veins are patent. The gallbladder is surgically absent. Trace pneumobilia. Prominent common bile duct with a heterogeneous center, possibly due to prominent wall thickening, measuring up to 2.4 cm in diameter, increased from prior. Trace pneumobilia. Mild central intrahepatic biliary ductal dilatation. Possible lesion at the confluence of bile ducts in the left hepatic lobe just superior to the confluence of the portal veins, measuring 1.6 x 2 cm (axial series 501 image 19, coronal series 502 image 28). Pancreas: Unremarkable. Spleen: Unremarkable. Gastrointestinal: No evidence of bowel obstruction or perienteric inflammation. The appendix is normal. And moderate left colonic diverticulosis. Adrenals: No abnormality identified in either adrenal gland. Renal: Tiny superior right hepatic lobe hypodensity, likely a cyst. No concerning parenchymal abnormality in either kidney. No hydronephrosis or urolithiasis. Bladder/Reproductive: Unremarkable appearance of the urinary bladder by CT technique. Unremarkable CT appearance of the uterus and ovaries. Vascular/Lymphatics: No lymphadenopathy identified by CT size criteria. Moderate calcific atherosclerosis. Abdominal aorta is normal in caliber. Musculoskeletal: No concerning osseous lesion identified. Fluid / peritoneum: No significant free fluid. No free intraperitoneal air identified. IMPRESSION: 1. No CTA evidence of acute pulmonary thromboembolism. 2. Findings suggestive of pulmonary arterial hypertension. 3. No pulmonary consolidation or pleural effusions. 4. Prior right hepatic lobectomy. 5. Small rounded focus in the central left hepatic lobe. Prominent, heterogeneous attenuation common bile duct suggestive of prominent wall thickening. Mild intrahepatic dilation. Findings are highly concerning for malignancy. Infection is within the differential. Recommend correlation with contrast enhanced MRI with MRCP when clinically appropriate. 6. Moderate left colonic diverticulosis. No evidence of acute diverticulitis. MRCP: COMPARISON: Abdomen Pelvis W Contrast dated 07/12/2021 FINDINGS: Three-dimensional MRCP was performed using maximum intensity projection reconstruction on the same work station. There is moderate to significant dilatation of the into intrahepatic biliary tree within the left lobe of the liver. The majority of the right lobe liver appears surgically absent there arm multiple filling defects seen within the dilated left intrahepatic biliary tree radicles the largest of which measures almost 2 centimeters. Several additional smaller similar rounded filling defects are also present. The gallbladder appears absent. Limited T2 sequences through the abdomen demonstrates no bulky adenopathy, significant free fluid or abscess. IMPRESSION: [id number] dilatation of the intrahepatic biliary tree of the left lobe liver. Multiple filling defects within these dilated biliary radicles probably represent intrahepatic stones. Although malignancy is not ruled out and is felt to be less likely. MRI Abdomen: COMPARISON: Cholangiogram dated 07/14/2021; Abdomen Pelvis Wo Contrast dated 02/20/2019 FINDINGS: Postsurgical changes are seen with absence of the right lobe of the liver. The left lobe of the liver demonstrates moderate intrahepatic biliary tree dilatation. Filling defect is seen within the biliary tree which may represent intrahepatic stones or mass. The spleen, pancreas, adrenal glands and kidneys are within normal limits. No bulky lymphadenopathy is seen in the abdomen. No free fluid collections evident. No pathologic post-contrast enhancement is evident. IMPRESSION: There is moderate intrahepatic biliary dilatation dilatation seen involving the left lobe liver. Filling defects are seen within the dilated biliary system suggesting intrahepatic stones or masses. 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 Patient is seen at [facility]. Patient is from out of town visiting her daughter. She has a follow-up with [facility] in 2 weeks. Patient reported 1 day of fever and chills. She denied any other issues. Patient found to have elevated white count with bandemia. CT scan showed no evidence of pulmonary embolism, prior hepatic lobectomy noted. Moderate left colonic diverticulosis without diverticulitis noted. Small rounded focus on the central left hepatic lobe noted. Prominent wall thickening suggestive of common bile duct dilation noted. Patient admitted for treatment. Hospital Course: Patient presented with fever. Patient with history of prior hepatic lobectomy and colectomy due to history of carcinoid tumors. Patient is seen at [facility]. Patient is visiting in the area. Patient was admitted due to elevated white count and bandemia. Urine culture negative. No evidence of pneumonia or emboli. MRCP and MRI of the abdomen showed moderate to severe dilation of the intrahepatic biliary tree of the left lobe of the liver. Multiple filling defects within the dilated biliary radicles likely represented intrahepatic stones. Liver function tests unremarkable. Patient without significant nausea or vomiting. Patient tolerating diet. Blood cultures negative. Patient was placed on IV antibiotic therapy with improvement. Multiple attempts were made to contact [facility] to update patient status. At discharge patient appears to be at her baseline. Due to findings will continue with antibiotic therapy at discharge. We will continue with Augmentin 500 mg 1 pill twice daily and Flagyl 500 mg 3 times a day for 7 days. Patient has follow -up with [facility] within 7 to 10 days. A copy of MRI, CT scan will be provided. Case discussed at length with patient and daughter who plans to follow-up at [facility] to go over results. Patient may require further evaluation and intervention. Patient to follow-up with [facility] soon. Patient with hypertension. At discharge we will continue with lisinopril hydrochlorothiazide. Hold blood pressure medication if blood pressure systolic less than 110. Maintain blood pressure less than 130/80. Patient with history of atrial fibrillation not on chronic anticoagulation therapy. At discharge we will continue with aspirin 81 mg daily and sotalol 80 mg 1 pill twice daily. Patient in normal sinus rhythm. Vital Signs/Physical Exam: Temp Pulse Resp BP Pulse Ox 97.6 F 61 16 133/76 97 07/14/21 12:00 07/14/21 12:00 07/14/21 12:00 07/14/21 12:00 07/14/21 12:00 General: Alert, In no apparent distress, Oriented x3, Cooperative HEENT: Atraumatic Neck: Supple Respiratory: Clear to auscultation bilaterally, Normal air movement Cardiovascular: Normal pulses, Regular rate/rhythm Gastrointestinal: Normal bowel sounds, No ascites, No tenderness, No masses, No rebound, No guarding Integumentary: No tenderness/swelling, No erythema, No warmth, No cyanosis Neurological: Normal speech, Normal strength at 5/5 x4 extr, Normal tone, Normal affect Laboratory Data at Discharge: WBC 8.10 K/uL (4.3-10.9) D 07/14/21 05:25 Hgb 12.1 g/dL (12.0-15.0) 07/14/21 05:25 Hct 37.2 % (36.0-45.0) 07/14/21 05:25 Plt Count 138 K/uL (152-406) L 07/14/21 05:25 PT 12.7 SECONDS (9.5-12.5) H 07/12/21 20:00 INR 1.10 07/12/21 20:00 APTT 26.5 SECONDS (24.3-36.9) 07/12/21 20:00 Sodium 146 mmol/L (136-145) H 07/14/21 05:25 Potassium 3.7 mmol/L (3.5-5.1) 07/14/21 05:25 BUN 11 mg/dL (7-18) 07/14/21 05:25 Creatinine 0.69 mg/dL (0.55-1.3) 07/14/21 05:25 Glucose 87 mg/dL (74-106) 07/14/21 05:25 Phosphorus 2.8 mg/dL (2.5-4.9) 07/14/21 05:25 Magnesium 2.0 mg/dL (1.8-2.4) 07/14/21 05:25 Total Bilirubin 0.7 mg/dL (0.2-1.0) 07/14/21 05:25 AST 20 U/L (15-37) 07/14/21 05:25 ALT 25 U/L (12-78) 07/14/21 05:25 Alkaline Phosphatase 41 U/L (45-117) L 07/14/21 05:25 Triglycerides 78 mg/dL (<150) 07/14/21 05:25 Cholesterol 83 mg/dL (<200) 07/14/21 05:25 HDL Cholesterol 30 mg/dL (40-60) L 07/14/21 05:25 Cholesterol/HDL Ratio 2.77 07/14/21 05:25 Amylase 44 U/L (25-115) 07/12/21 20:00 Lipase 154 U/L (73-393) 07/12/21 20:00 Home Medications: Aspirin [Aspirin EC 81 MG] 81 mg PO DAILY 07/13/21 Lisinopril/Hydrochlorothiazide [Lisinopril-Hctz 20-12.5 mg Tab] 1 tab PO DAILY 07/13/21 Sotalol HCl [Sotalol AF] 80 mg PO BID 07/13/21 Amoxicillin/Potassium Clav [Augmentin 500-125 Tablet] 1 each PO BID #14 tablet 07/14/21 metroNIDAZOLE [Flagyl] 500 mg PO Q8H #21 tablet 07/14/21 New Medications: Amoxicillin/Potassium Clav [Augmentin 500-125 Tablet] 1 each PO BID #14 tablet metroNIDAZOLE [Flagyl] 500 mg PO Q8H #21 tablet Physician Discharge Instructions: OK TO DC IV AND DC HOME FOLLOW-UP WITH PRIMARY CARE PROVIDER IN 1-2 WEEKS FOLLOW-UP WITH Oncology at [facility] IN 1-2 WEEKS RETURN TO THE ER IF symptoms worsen CALL or TEXT DR. TAYLOR AT [phone] IF ANY QUESTIONS REGARDING HOSPITAL STAY. PLEASE CALL THE FLOOR AT [phone] IF ANY MEDICATION OR NURSING QUESTIONS. Patient presented with fever. Patient with history of prior hepatic lobectomy and colectomy due to history of carcinoid tumors. Patient is seen at [facility]. Patient is visiting in the area. Patient was admitted due to elevated white count and bandemia. Urine culture negative. No evidence of pneumonia or emboli. MRCP and MRI of the abdomen showed moderate to severe dilation of the intrahepatic biliary tree of the left lobe of the liver. Multiple filling defects within the dilated biliary radicles likely represented intrahepatic stones. Liver function tests unremarkable. Patient without significant nausea or vomiting. Patient tolerating diet. Blood cultures negative. Patient was placed on IV antibiotic therapy with improvement. Multiple attempts were made to contact [facility] to update patient status. At discharge patient appears to be at her baseline. Due to findings will continue with antibiotic therapy at discharge. We will continue with Augmentin 500 mg 1 pill twice daily and Flagyl 500 mg 3 times a day for 7 days. Patient has follow-up with [facility] within 7 to 10 days. A copy of MRI, CT scan will be provided. Case discussed at length with patient and daughter who plans to follow-up at [facility] to go over results. Patient may require further evaluation and intervention. Patient to follow-up with [facility] soon. Patient with hypertension. At discharge we will continue with lisinopril hydrochlorothiazide. Hold blood pressure medication if blood pressure systolic less than 110. Maintain blood pressure less than 130/80. Patient with history of atrial fibrillation not on chronic anticoagulation therapy. At discharge we will continue with aspirin 81 mg daily and sotalol 80 mg 1 pill twice daily. Patient in normal sinus rhythm. Diet: AHA Activity: Fall precautions Followup: NONE,NONE [Primary Care Provider] - Time spent managing pt's care (in minutes): 55
[2021-07-14 18:30] VITALS: BP 123/67; TEMP 98.4
== END 2021-07-14 18:15 | disposition home or self-care (01) | DRG 690 ==
LOC: ER 19:36 → ERHOLD 07-13 01:27 → 2ND 07-13 08:54
PROVIDERS: ADMIT Hospitalist; ATTEND Family Medicine
DX: N30.00 Acute cystitis without hematuria (principal); I48.20 Chronic atrial fibrillation, unspecified; D72.825 Bandemia; I10 Essential (primary) hypertension; I27.20 Pulmonary hypertension, unspecified; K76.9 Liver disease, unspecified; D3A.098 Benign carcinoid tumors of other sites; Z87.891 Personal history of nicotine dependence; Z79.82 Long term (current) use of aspirin; Z79.899 Other long term (current) drug therapy; Z23 Encounter for immunization
CPT/HCPCS: 0240U; 36415; 71045; 71275; 74177; 74181; 74183; 80048; 80053; 80061; 80076; 81003; 81015; 82105; 82150; 82533; 82550; 82553; 82947; 83605; 83690; 83735; 83880; 84100; 84145; 84439; 84443; 84484; 85025; 85610; 85730; 87040; 90471; 93005; 99285; A9577; J0692; J1650; J2550; J7030; Q2035; Q9967